=== PATIENT | female | born 1975 | race Caucasian/White ===

== ENCOUNTER → 2018-04-03 15:55 | Outpatient (CLI) | payer OTHER, SELFPAY ==
[2018-04-03 15:07] VITALS: TEMP 36.8
--- NOTE | 2018-04-03 16:02 | DI.RAD.S_ITS ---
PROCEDURE: XR ANKLE LT MIN 3V INDICATIONS: SPRAIN OF ANKLE TECHNIQUE: 3 views of the ankle were acquired. COMPARISON: None. FINDINGS: Bones: No fractures or dislocations. Ankle mortise is normally aligned. No suspicious bony lesions. Soft tissues: Lateral malleolar soft tissue edema is present. Achilles tendon appears normal. IMPRESSION: Lateral soft tissue edema. No visualized acute fracture or dislocation. However, if clinical concern and/or pain persist, short interval imaging followup in 7-10 days is recommended, as occult injury cannot be definitively excluded. Dictated by: Venus Burch M.D. on 04/03/2018 at 17:04 Approved by: Venus Burch M.D. on 04/03/2018 at 17:11
== END ==
PROVIDERS: PCP Internal Medicine; Visit Provider Physician Assistant
DX: S93.402A Sprain of unspecified ligament of left ankle, initial encounter (principal)
CPT/HCPCS: 73610

== ENCOUNTER → 2018-10-07 10:51 | Outpatient (CLI) | payer OTHER, SELFPAY ==
--- NOTE | 2018-10-07 | DI.MG.S_ITS ---
BILATERAL DIGITAL SCREENING MAMMOGRAM 3D/2D WITH CAD: 10/07/2018 CLINICAL: Family history of breast cancer. Routine screening. Comparison is made to exams dated: 08/17/2017 mammogram and 08/11/2016 mammogram - [facility]. The tissue of both breasts is heterogeneously dense. This may lower the sensitivity of mammography. Current study was also evaluated with a Computer Aided Detection (CAD) system. No significant masses, calcifications, or other findings are seen in either breast. There has been no significant interval change. IMPRESSION: NEGATIVE There is no mammographic evidence of malignancy. A 1 year screening mammogram is recommended. This exam was interpreted at Station ID: [id number]. NOTE: For mammograms, a report in lay terms will be sent to the patient. Approximately 15% of breast malignancies will not be visualized mammographically. In the management of a palpable breast mass, a negative mammogram must not discourage biopsy of a clinically suspicious lesion. Electronically Signed By: Timi swenson/jose:10/07/2018 17:34:44 letter sent: Normal Exam ACR BI-RADS Category 1: Negative 3341F
== END ==
PROVIDERS: PCP Internal Medicine; Visit Provider Internal Medicine
DX: Z12.31 Encounter for screening mammogram for malignant neoplasm of breast (principal); Z80.3 Family history of malignant neoplasm of breast
CPT/HCPCS: 77063; 77067

== ENCOUNTER → 2019-11-19 12:54 | Outpatient (CLI) | payer OTHER, SELFPAY ==
--- NOTE | 2019-11-19 | DI.MG.S_ITS ---
BILATERAL DIGITAL SCREENING MAMMOGRAM 3D/2D WITH CAD: 11/19/2019 CLINICAL: Routine screening. Family history of breast cancer. Comparison is made to exams dated: 10/07/2018 mammogram, 08/17/2017 mammogram, and 08/11/2016 mammogram - [facility]. The tissue of both breasts is heterogeneously dense. This may lower the sensitivity of mammography. Current study was also evaluated with a Computer Aided Detection (CAD) system. No significant masses, calcifications, or other findings are seen in either breast. There has been no significant interval change. IMPRESSION: NEGATIVE There is no mammographic evidence of malignancy. A 1 year screening mammogram is recommended. This exam was interpreted at Station ID: [id number]. NOTE: For mammograms, a report in lay terms will be sent to the patient. Approximately 15% of breast malignancies will not be visualized mammographically. In the management of a palpable breast mass, a negative mammogram must not discourage biopsy of a clinically suspicious lesion. Electronically Signed By: Timi swenson/jose:11/21/2019 10:53:26 letter sent: Normal Exam ACR BI-RADS Category 1: Negative 3341F
== END ==
PROVIDERS: PCP Internal Medicine; Visit Provider Internal Medicine
DX: Z12.31 Encounter for screening mammogram for malignant neoplasm of breast (principal); Z80.3 Family history of malignant neoplasm of breast
CPT/HCPCS: 77063; 77067

== ENCOUNTER 2021-03-09 10:58 | Emergency (ER) | payer OTHER, SELFPAY ==
[2021-03-09 11:20] VITALS: BP 140/70; PULSE 75; RESP 18; TEMP 36.8; O2SAT 100; BMI 43.9
--- NOTE | 2021-03-09 11:20 | ED_ITS ---
HPI - Abdominal Pain General Chief Complaint: Abdominal Pain Stated Complaint: ABD PAIN. HERE FROM [facility] x3 Time Seen by Provider: 03/09/21 11:04 Source: patient Mode of arrival: Ambulatory Limitations: no limitations History of Present Illness HPI narrative: 45-year-old female nonsmoker without significant medical history presents with a family friend and the chief complaint of a few days worsening left lower quadrant pain. She states her pain has been gradually worsening and is made worse by moving and improves with rest. She is nauseated but denies any vomiting. She has had no dysuria, frequency or urgency. She does state that occasionally the abdominal cramping will build until she has a loose stool and then she experiences improvement for some time MD complaint: abdominal pain Onset (ago): day(s) Pain Consistency: constant Location: LLQ Severity: moderate Quality: cramping and aching Radiation: none Relieving factors: bowel movement Exacerbating factors: movement Associated symptoms: nausea Related Data Home Medications Medication Instructions Recorded Confirmed triamcinolone acetonide 1 lea TOPICAL BID #0 03/03/18 04/03/18 Previous Rx's Medication Instructions Recorded clobetasol 0.05 % TOPICAL QDAY #15 gm 03/03/18 nystatin 0 unit TOPICAL TID #1 tube 03/03/18 prazosin 1 mg capsule 2 mg PO HS #180 cap 05/24/18 loratadine 10 mg tablet 10 mg PO QDAYP PRN #90 tab 05/31/18 meloxicam 15 mg tablet 15 mg PO QDAY #90 tab 06/01/18 montelukast 10 mg tablet 10 mg PO QDAY #90 tab 06/01/18 omeprazole 20 mg capsule,delayed 20 mg PO QDAY #90 cap 06/01/18 release venlafaxine 75 mg capsule,extended 75 mg PO QDAY #90 cap 06/01/18 release 24 hr ciprofloxacin HCl 500 mg PO BID #20 tab 03/09/21 hydrocodone-acetaminophen 1 tab PO Q4-6H PRN #10 tab 03/09/21 metronidazole [Flagyl] 500 mg PO Q8H #30 tab 03/09/21 ondansetron 4 mg PO TID-QID PRN #10 tab 03/09/21 Allergies Allergy/AdvReac Type Severity Reaction Status Date / Time Penicillins [PENICILLINS] Allergy Severe ANAPHYLAXIS Verified 04/10/21 11:23 Sulfa (Sulfonamide Allergy Intermediate HIVES Verified 03/09/21 11:23 Antibiotics) [SULFA (SULFONAMIDE ANTIBIOTICS)] Review of Systems Constitutional Constitutional: Denies chills, Denies fatigue, Denies fever(s), Denies frequent falls, Denies lethargy and Denies weakness Eyes Eyes: Denies change in vision, Denies eye discharge, Denies irritation and Denies loss of vision ENT Ears, Nose, Mouth, and Throat: Denies change in voice, Denies dizziness, Denies neck pain, Denies sore throat and Denies throat swelling Cardiovascular Cardiovascular: Denies chest pain, Denies irregular heart rhythm, Denies lightheadedness, Denies palpitations, Denies dyspnea, Denies dyspnea on exertion and Denies orthopnea Respiratory Respiratory: Denies cough, Denies dyspnea, Denies dyspnea on exertion and Denies wheezing Gastrointestinal Gastrointestinal: Denies abdominal pain, Denies change in bowel habits, Reports diarrhea, Reports nausea and Denies vomiting Musculoskeletal Musculoskeletal: Denies neck pain and Denies numbness Integumentary/Breasts Skin/Breast: Denies pruritus, Denies erythema, Denies rash and Denies wounds Neurologic Neurologic: Denies behavioral changes, Denies confusion, Denies dizziness, Denies frequent falls, Denies loss of vision, Denies numbness and Denies weakness Psychiatric Psychiatric: Denies anxiety, Denies behavioral changes, Denies confusion, Denies depression, Denies homicidal ideation and Denies suicidal ideation Endocrine Endocrine: Denies fatigue, Denies flushing and Denies palpitations Hematologic/Lymphatic Hematologic/Lymphatic: Denies easy bruising Allergic/Immunologic Allergic/Immunologic: Denies urticaria, Denies throat swelling and Denies wheezing Patient History Family History Father Age: 69 Heart disease Grandfather Age: 93 Skin cancer (melanoma) Grandmother Stroke Grandfather Cancer Grandmother Stroke Social History Smoking Status: Never smoker Smoking Status: Never smoker Exam Narrative Exam Narrative: GENERAL: [45] year old patient appears stated age. Well- nourished, well-developed patient, in mild distress. Obviously uncomfortable, laying on her side and rubbing her left lower abdomen HEAD: Atraumatic. Normocephalic. EYES: Pupils equal round and reactive. Extraocular motions intact. No scleral icterus. No injection or drainage. ENT: Nose without bleeding, purulent drainage. Throat without erythema, tonsillar hypertrophy or exudate. Airway patent. NECK: Trachea midline. Non tender CARDIOVASCULAR: Regular rate and rhythm without murmurs, gallops, or rubs. RESPIRATORY: Clear to auscultation. Breath sounds equal bilaterally. No wheezes, rales, or rhonchi. GASTROINTESTINAL: Abdomen soft, severe left lower quadrant tenderness, no rebound, nondistended. Bowel sounds present in all 4 quadrants EXTREMITIES: No edema or joint tenderness. BACK: Nontender without deformity or crepitance. No flank tenderness. NEURO: AOx3. SKIN: No rash or erythema of visible areas Initial Vital Signs Initial Vital Signs: Vital Signs Temperature 98.3 F 03/09/21 11:20 Pulse Rate 75 03/09/21 11:20 Respiratory Rate 18 03/09/21 11:20 Blood Pressure 140/70 03/09/21 11:20 Pulse Oximetry 100 03/09/21 11:20 Course Orders Ordered: ED Orders 03/09/21 11:58 Blood Culture Stat Discontinued Medications Sodium Chloride (Normal Saline 0.9%) 1,000 mls @ 1,000 mls/hr IV BOLUS ONE Stop: 03/09/21 12:19 Last Admin: 03/09/21 12:06 Dose: 1,000 mls/hr Documented by: PATRICIA Vital Signs Vital signs: Vital Signs - 8 hr 03/09/21 13:42 03/09/21 13:43 03/09/21 15:04 Pulse Rate 63 62 66 Respiratory Rate 15 Blood Pressure 110/59 L 110/72 Pulse Oximetry 99 99 99 MDM - Abdominal Pain Lab Data Result diagrams: 03/09/21 11:34 03/09/21 11:34 Labs: Lab Results 03/09/21 03/09/21 03/09/21 Range/Units 11:30 11:34 11:34 WBC 12.5 H (4.5-11.0) X10^3/uL RBC 4.01 (4.0-5.2) X10^6/uL Hgb 12.7 (12.0-16.0) g/dL Hct 37.1 (36-46) % MCV 92.5 (80-100) fL MCH 31.5 (26-34) PG MCHC 34.1 (30-36) % RDW 12.5 (11.6-14.8) % Plt Count 266 (150-400) X10^3/uL Neut % (Auto) 70.7 (50-75) % Lymph % (Auto) 17.7 L (25-40) % [place] % (Auto) 8.6 (3-14) % Eos % (Auto) 2.1 (2-4) % Baso % (Auto) 0.9 (0-2) % Neut # (Auto) 8900 H (7829-8418) /uL Lymph # (Auto) 2200 (3945-6072) /uL [place] # (Auto) 1100 H (0-900) /uL Eos # (Auto) 300 (0-450) /uL Baso # (Auto) 100 (0-100) /uL Sodium 134 L (137-145) mmol/L Potassium 4.2 (3.4-5.1) mmol/L Chloride 103 (98-107) mmol/L Carbon Dioxide 22 (22-32) mmol/L BUN 11 (7-17) mg/dL Creatinine 0.61 (0.52-1.04) mg/dL Estimated GFR > 60.0 (>60) mL/min BUN/Creatinine Ratio 18.0 (6-22) Glucose 134 H (70-100) mg/dL Lactate (0.7-2.1) mmol/L Calcium 9.7 (8.4-10.2) mg/dL Total Bilirubin 1.2 (0.2-1.3) mg/dL AST 33 (14-36) IU/L ALT 51 H (<35) IU/L Alkaline Phosphatase 68 (38-126) U/L Total Protein 7.4 (6.3-8.2) g/dL Albumin 4.4 (3.5-5.0) g/dL Globulin 3.0 (1.7-4.1) g/dL Albumin/Globulin Ratio 1.5 (1.0-2.8) Lipase 70 (23-300) U/L Urine Test Negative (Negative) 03/09/21 Range/Units 11:34 WBC (4.5-11.0) X10^3/uL RBC (4.0-5.2) X10^6/uL Hgb (12.0-16.0) g/dL Hct (36-46) % MCV (80-100) fL MCH (26-34) PG MCHC (30-36) % RDW (11.6-14.8) % Plt Count (150-400) X10^3/uL Neut % (Auto) (50-75) % Lymph % (Auto) (25-40) % [place] % (Auto) (3-14) % Eos % (Auto) (2-4) % Baso % (Auto) (0-2) % Neut # (Auto) (7885-3642) /uL Lymph # (Auto) (8503-7339) /uL [place] # (Auto) (0-900) /uL Eos # (Auto) (0-450) /uL Baso # (Auto) (0-100) /uL Sodium (137-145) mmol/L Potassium (3.4-5.1) mmol/L Chloride (98-107) mmol/L Carbon Dioxide (22-32) mmol/L BUN (7-17) mg/dL Creatinine (0.52-1.04) mg/dL Estimated GFR (>60) mL/min BUN/Creatinine Ratio (6-22) Glucose (70-100) mg/dL Lactate 1.5 (0.7-2.1) mmol/L Calcium (8.4-10.2) mg/dL Total Bilirubin (0.2-1.3) mg/dL AST (14-36) IU/L ALT (<35) IU/L Alkaline Phosphatase (38-126) U/L Total Protein (6.3-8.2) g/dL Albumin (3.5-5.0) g/dL Globulin (1.7-4.1) g/dL Albumin/Globulin Ratio (1.0-2.8) Lipase (23-300) U/L Urine Test (Negative) Point of care testing: Urine Dip Bedside Urine Glucose Negative Bedside Urine Bilirubin - Negative Bedside Urine Ketone - Negative Urine Specific [place] 1.015 Bedside Urine Occult Blood - Negative Bedside Urine pH 6 Bedside Urine Protein - Negative Bedside Urine Urobilinogen - Negative Bedside Urine Nitrite - Negative Bedside Urine Leukocytes - Negative Esterase Imaging Data CT scan - abdomen/pelvis: Radiologist's Impression: Yokasta Mansikka,Jennifer L 45 F [address] [id number] Scan ReportSigned Patient: Jennifer Thomas LMR#: [id number]: [id number]:[id number]/Sex: 45 / FDate of Service: 03/09/21Loc: EDAccession Number: [id number] Procedure: CT abdomen pelvis w con Ordering Provider: Samm Burns D.O. PROCEDURE: CT ABDOMEN PELVIS W CON INDICATIONS: severe LLQ pain, fever, shaking, chills TECHNIQUE: After the administration of intravenous contrast, 5 mm thick sections acquired from the diaphragm to the symphysis. 5 mm coronal and sagittal reformats were acquired. For radiation dose reduction, the following was used: automated exposure control, adjustment of mA and/or kV according to patient size. COMPARISON: None. FINDINGS: Image quality: Excellent. ABDOMEN: Lung bases: Lung bases are clear. Heart size is normal. Solid organs: Diffuse hepatic steatosis with focal sparing in the posterior left hepatic lobe adjacent to the fissure for the ligamentum teres. No focal hepatic mass identified. No intrahepatic biliary ductal dilatation. The gallbladder is unremarkable. Normal caliber common duct. Pancreas is unremarkable. The spleen is normal in size and otherwise normal. No adrenal gland mass. Both kidneys are normal. No shadowing calculus or hydronephrosis. Peritoneum and bowel: No abnormally dilated loop of bowel. Inflammatory changes surrounding the proximal sigmoid colon (series 2, images 65-74). Small volume adjacent free fluid extending into the pelvis. Nodes and vessels: No threshold enlarged intra-abdominal or retroperitoneal lymph node. Miscellaneous: No ventral hernias. PELVIS: Genitourinary: Decompressed urinary bladder. Uterus and ovaries are within normal limits. Miscellaneous: No threshold enlarged pelvic or inguinal lymph node. Bones: No acute or suspicious osseous lesion. IMPRESSION: Inflammatory changes adjacent to the proximal sigmoid colon with an associated diverticulum. Findings are consistent with diverticulitis. No adjacent fluid collection or perforation. Dictated by: Zac Bueno M.D. on 03/09/2021 at 13:15 Approved by: Zac Bueno M.D. on 03/09/2021 at 13:18 [facility] Narrative Medical decision making narrative: Patient with story and physical exam very convincing for mild diverticulitis. Slight elevation in white blood cells and otherwise unremarkable labs. CT shows diverticulitis without abscess or perforation. She is tolerating orals, pain is controlled and she so has no signs of sepsis. Return precautions given and questions answered to her apparent satisfaction Discharge Plan Departure Patient Disposition: Home Clinical Impression: Diverticulitis Instructions: DI for Diverticulitis Activity Restrictions/Additional Instructions: *You have been diagnosed with [diverticulitis without evidence of abscess or bowel perforation.] *What to do: *Take medications as directed *Follow up with your primary care provider in 2-3 days, call for an appointment. Let them know you were seen in the Emergency Department and that we ask that you be seen in follow up * please consider a clear liquid diet for the next 24-48 hours and advance as tolerated *Return to ER if you should have any new, worsening or concerning symptoms, such as [fever, shaking chills, worsening pain or other bothersome symptoms] Prescriptions: New ciprofloxacin HCl 500 mg tablet 500 mg PO BID Qty: 20 RF: 0 metronidazole [Flagyl] 500 mg tablet 500 mg PO Q8H Qty: 30 RF: 0 ondansetron 4 mg tablet,disintegrating 4 mg PO TID-QID PRN (Reason: nausea and vomiting) Qty: 10 RF: 0 hydrocodone-acetaminophen 5-325 mg tablet 1 tab PO Q4-6H PRN (Reason: pain) Qty: 10 RF: 0 No Action triamcinolone acetonide 0.1 % cream 1 lea Topical BID Qty: 0 RF: 0 nystatin 30 GM cream 0 unit Topical TID Qty: 1 RF: 2 clobetasol 0.05 % ointment 0.05 % Topical QDAY Qty: 15 RF: 1 prazosin 1 mg capsule 2 mg PO HS Qty: 180 RF: 3 loratadine 10 mg tablet 10 mg PO QDAYP PRN (Reason: allergy symptoms) Qty: 90 RF: 3 montelukast [Singulair] 10 mg tablet 10 mg PO QDAY Qty: 90 RF: 3 omeprazole 20 mg capsule,delayed release(DR/EC) 20 mg PO QDAY Qty: 90 RF: 3 meloxicam 15 mg tablet 15 mg PO QDAY Qty: 90 RF: 1 venlafaxine [Effexor XR] 75 mg capsule,extended release 24hr 75 mg PO QDAY Qty: 90 RF: 1 Referrals: Kacie Berry ARNP [Primary Care Provider] -
[2021-03-09 11:42] LABS: Add Manual Diff / Slide Review NO; Basophils Absolute Auto 100 /uL (0-100); Basophils Percent Auto 0.9 % (0-2); Eosinophils Absolute Auto 300 /uL (0-450); Eosinophils Percent Auto 2.1 % (2-4); Hematocrit 37.1 % (36-46); Hemoglobin 12.7 g/dL (12.0-16.0); Lymphocytes Absolute Auto 2200 /uL (1100-4500); Lymphocytes Percent Auto 17.7 % (25-40); Mean Corpuscular HGB Conc 34.1 % (30-36); Mean Corpuscular Hemoglobin 31.5 PG (26-34); Mean Corpuscular Volume 92.5 fL (80-100); Monocytes Absolute Auto 1100 /uL (0-900); Monocytes Percent Auto 8.6 % (3-14); Neutrophils Absolute Auto 8900 /uL (1500-7000); Neutrophils Percent Auto 70.7 % (50-75); Platelet Count 266 X10^3/uL (150-400); Red Blood Cell Count 4.01 X10^6/uL (4.0-5.2); Red Cell Distribution Width 12.5 % (11.6-14.8); White Blood Cell Count 12.5 X10^3/uL (4.5-11.0)
[2021-03-09 11:58] LABS: Lactate (Lactic Acid) 1.5 mmol/L (0.7-2.1)
[2021-03-09 11:59] LABS: Alanine Aminotransferase 51 IU/L (<35); Albumin 4.4 g/dL (3.5-5.0); Albumin Globulin Ratio 1.5 (1.0-2.8); Alkaline Phosphatase 68 U/L (38-126); Aspartate Aminotransferase 33 IU/L (14-36); Bilirubin Total 1.2 mg/dL (0.2-1.3); Blood Urea Nitrogen 11 mg/dL (7-17); Calcium 9.7 mg/dL (8.4-10.2); Carbon Dioxide 22 mmol/L (22-32); Chloride 103 mmol/L (98-107); Estimated Glomerular Filt Rate > 60.0 mL/min (>60); Glucose 134 mg/dL (70-100); HEMOLYSIS < 15 (0-50); Lipase 70 U/L (23-300); Potassium 4.2 mmol/L (3.4-5.1); Sodium 134 mmol/L (137-145); Total Protein 7.4 g/dL (6.3-8.2)
[2021-03-09] MEDS: SODIUM CHLORIDE 0.9% 1,000 ML 1000 ML IV (12:06)
[2021-03-09 12:20] LABS: Pregnancy Test Urine Negative (Negative)
[2021-03-09 13:42] VITALS: PULSE 63; O2SAT 99
[2021-03-09 13:43] VITALS: BP 110/59; PULSE 62; O2SAT 99
[2021-03-09 15:04] VITALS: BP 110/72; PULSE 66; RESP 15; O2SAT 99
--- NOTE | 2021-03-11 07:27 | PC.NURSE ---
Late entry. one liter normal saline infused, stopped at 1330.
== END 2021-03-09 15:05 | disposition home or self-care (01) ==
PROVIDERS: Emergency Provider Emergency Medicine; PCP Internal Medicine
DX: K57.92 Diverticulitis of intestine, part unspecified, without perforation or abscess without bleeding (principal); R11.0 Nausea
CPT/HCPCS: 36415; 74177; 80053; 81003; 81025; 83605; 83690; 85025; 87040; 96360; 99284; Q9967

== ENCOUNTER 2021-04-03 20:32 | Observation (INO) | payer OTHER, SELFPAY ==
[2021-04-03] VITALS (11 sets, daily range): BP systolic 106–147; BP diastolic 58–80; PULSE 63–71; RESP 11–21; TEMP 36.7; O2SAT 96–99; BMI 43.9
--- NOTE | 2021-04-03 20:40 | DI.RAD.S_ITS ---
PROCEDURE: XR CHEST 1V INDICATIONS: chest pain TECHNIQUE: One view of the chest was acquired. COMPARISON: [facility], , CHEST 2 VIEW, 06/16/2017, 14:12. FINDINGS: Surgical changes and devices: None. Lungs and pleura: Lungs are clear. No pleural effusions or pneumothorax. Mediastinum: Mediastinal contours appear normal. Heart size is normal. Bones and chest wall: No suspicious bony lesions. Overlying soft tissues appear unremarkable. IMPRESSION: No acute disease. Dictated by: Peewee Lind M.D. on 04/03/2021 at 21:12 Approved by: Peewee Lind M.D. on 04/03/2021 at 21:12
[2021-04-03 20:57] LABS: Add Manual Diff / Slide Review NO; Basophils Absolute Auto 100 /uL (0-100); Basophils Percent Auto 1.2 % (0-2); Eosinophils Absolute Auto 300 /uL (0-450); Eosinophils Percent Auto 3.3 % (2-4); Hematocrit 37.9 % (36-46); Lymphocytes Absolute Auto 2400 /uL (1100-4500); Lymphocytes Percent Auto 27.1 % (25-40); Mean Corpuscular HGB Conc 34.3 % (30-36); Mean Corpuscular Hemoglobin 31.5 PG (26-34); Mean Corpuscular Volume 91.9 fL (80-100); Monocytes Absolute Auto 600 /uL (0-900); Monocytes Percent Auto 6.7 % (3-14); Neutrophils Absolute Auto 5500 /uL (1500-7000); Neutrophils Percent Auto 61.7 % (50-75); Platelet Count 298 X10^3/uL (150-400); Red Blood Cell Count 4.12 X10^6/uL (4.0-5.2); Red Cell Distribution Width 12.4 % (11.6-14.8); White Blood Cell Count 8.9 X10^3/uL (4.5-11.0)
[2021-04-03 21:05] LABS: Prothrombin Time 10.8 SECONDS (10.1-12.7)
[2021-04-03 21:08] LABS: PTT Partial Thromboplastin Tim 35 SECONDS (26.4-36.2)
[2021-04-03 21:10] LABS: Alanine Aminotransferase 64 IU/L (<35); Albumin 4.9 g/dL (3.5-5.0); Albumin Globulin Ratio 1.6 (1.0-2.8); Alkaline Phosphatase 84 U/L (38-126); Aspartate Aminotransferase 49 IU/L (14-36); BUN Creatinine Ratio 17.6 (6-22); Bilirubin Total 0.5 mg/dL (0.2-1.3); Blood Urea Nitrogen 13 mg/dL (7-17); Calcium 9.8 mg/dL (8.4-10.2); Carbon Dioxide 23 mmol/L (22-32); Chloride 103 mmol/L (98-107); Creatine Kinase 62 U/L (30-135); Estimated Glomerular Filt Rate > 60.0 mL/min (>60); Globulin 3.1 g/dL (1.7-4.1); Glucose 121 mg/dL (70-100); HEMOLYSIS < 15 (0-50); Lipase 120 U/L (23-300); Potassium 4.2 mmol/L (3.4-5.1); Sodium 139 mmol/L (137-145)
[2021-04-03 21:21] LABS: Troponin I < 0.012 ng/mL (0.01-0.034)
--- NOTE | 2021-04-03 21:46 | ED_ITS ---
HPI - Chest Pain General Chief Complaint: Chest Pain Stated Complaint: chest pain, up left arm and neck Time Seen by Provider: 04/03/21 21:38 Source: patient Mode of arrival: Ambulatory History of Present Illness HPI narrative: Patient here non reproducible left-sided chest pain rate to left neck and left arm. Pressure. Moderate. Onset 6:00 p.m. tonight. Consistent and persistent. No nausea dyspnea sweating. Father history of early coronary disease with bypass. Patient never had stress test. LMP now. No history of blood clots in legs or lungs. Is on blood pressure medication for headaches. No recent illness otherwise. Does not smoke. Related Data Previous Rx's Medication Instructions Recorded prazosin 1 mg capsule 2 mg PO HS #180 cap 05/24/18 loratadine 10 mg tablet 10 mg PO QDAYP PRN #90 tab 05/31/18 meloxicam 15 mg tablet 15 mg PO QDAY #90 tab 06/01/18 montelukast 10 mg tablet 10 mg PO QDAY #90 tab 06/01/18 omeprazole 20 mg capsule,delayed 20 mg PO QDAY #90 cap 06/01/18 release venlafaxine 75 mg capsule,extended 75 mg PO QDAY #90 cap 06/01/18 release 24 hr Allergies Allergy/AdvReac Type Severity Reaction Status Date / Time Penicillins [PENICILLINS] Allergy Severe ANAPHYLAXIS Verified 04/03/21 20:40 Sulfa (Sulfonamide Allergy Intermediate HIVES Verified 04/03/21 20:40 Antibiotics) [SULFA (SULFONAMIDE ANTIBIOTICS)] Review of Systems Review of Systems Narrative: GENERAL: Denies chills, fatigue, malaise, fever, sweats. HEENT: Denies sinus pain, ear pain, sore throat RESPIRATORY: Denies dyspnea, cough CARDIOVASCULAR: Complains chest pain, denies palpitations GASTROINTESTINAL: Denies nausea, vomiting, abdominal pain : Denies dysuria, frequency, hematuria MUSCULOSKELETAL: denies muscle or bony pain SKIN: Denies rash, skin lesions NEUROLOGIC: Denies weakness, numbness ROS Unobtainable: All systems reviewed & are unremarkable except as noted in HPI and below Patient History Family History Father Age: 69 Heart disease Grandfather Age: 93 Skin cancer (melanoma) Grandmother Stroke Grandfather Cancer Grandmother Stroke Social History household members: spouse Smoking Status: Never smoker Smoking Status: Never smoker alcohol intake frequency: 0-2 drinks per day Substance Use Type: does not use Exam Narrative Exam Narrative: GENERAL: in no distress, not toxic not dyspneic HEAD: Normocephalic. EYES: Pupils equal round No scleral icterus. No injection no discharge ENT: Mucous membranes moist. NECK: Trachea midline. CARDIOVASCULAR: Regular rate and rhythm without murmurs RESPIRATORY: Clear to auscultation. Breath sounds equal bilaterally. No wheezes, rales, or rhonchi. GASTROINTESTINAL: Abdomen soft, non-tender EXTREMITIES: No gross deformities. BACK: No flank tenderness. NEURO: AOx4. SKIN: Warm and dry PSYCH: Not anxious, is cooperative Initial Vital Signs Initial Vital Signs: Vital Signs Temperature 98.0 F 04/03/21 20:37 Pulse Rate 71 04/03/21 20:37 Respiratory Rate 16 04/03/21 20:37 Blood Pressure 147/80 H 04/03/21 20:37 Pulse Oximetry 97 04/03/21 20:37 Course Course Course Narrative: Patient feeling much better after nitro paste Decision to Admit Date: 04/03/21 Decision to Admit time: 22:32 Orders Ordered: ED Orders 04/03/21 20:40 XR chest 1V Stat EKG-12 Lead Stat 04/03/21 20:49 Complete Blood Count AUTO DIFF Stat Comprehensive Metabolic Panel Stat D Dimer Stat Lipase Stat Partial Thromboplastin Time Stat Test Serum,Qual Stat Prothrombin Time INR Stat Troponin & CK Cardiac Panel Stat 04/03/21 22:02 COVID19 - ADMIT (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 swab/PCR) Stat 04/03/21 22:36 EC echo doppler complete Stat Acetaminophen (Acetaminophen 325 Mg Tablet) 650 mg PO Q6HR PRN PRN Reason: Fever/Mild Pain (1-3) Sodium Chloride (Normal Saline 0.9%) 1,000 mls @ 125 mls/hr IV CONT YUMIKO Last Infusion: 04/04/21 00:25 Dose: 125 mls/hr Documented by: Admin: 04/03/21 22:47 Dose: 125 mls/hr Documented by: CHANCE Ondansetron HCl (Ondansetron 4 Mg/2 Ml Inj) 4 mg IV Q4HR PRN PRN Reason: Nausea And Vomiting Discontinued Medications Aspirin (Aspirin 81 Mg Chew Tab) 324 mg PO NOW ONE Stop: 04/03/21 21:44 Last Admin: 04/03/21 21:53 Dose: 324 mg Documented by: CHANCE Nitroglycerin (Nitroglycerin Oint 1 Inch/Gm Oint...G.) 0.5 inch TOP NOW ONE Stop: 04/03/21 21:44 Last Admin: 04/03/21 21:53 Dose: 0.5 inch Documented by: CHANCE Reevaluation(s) Reevaluation #1: Patient states chest discomfort much better after nitro paste. Aspirin given as well. Agrees for admission for stress test. Time: 22:32 Consultations Consultation #1: Spoke with family care provider on-call, Dr. Rogers. Will admit. Patient will have be boarded here. Time: 22:36 Vital Signs Vital signs: Vital Signs - 8 hr 04/03/21 20:37 04/03/21 21:11 04/03/21 21:16 Temperature 98.0 F Pulse Rate 71 66 67 Respiratory Rate 16 13 18 Blood Pressure 147/80 H 125/66 Pulse Oximetry 97 96 98 04/03/21 21:30 04/03/21 21:53 04/03/21 21:58 Temperature Pulse Rate 69 63 69 Respiratory Rate 13 21 Blood Pressure 125/66 125/73 Pulse Oximetry 98 99 04/03/21 22:00 04/03/21 22:30 04/03/21 23:00 Temperature Pulse Rate 64 64 65 Respiratory Rate 14 16 16 Blood Pressure 121/70 125/73 Pulse Oximetry 99 97 96 04/03/21 23:01 Temperature Pulse Rate 65 Respiratory Rate 18 Blood Pressure 106/58 L Pulse Oximetry 96 MDM - Chest Pain Differential Diagnosis Differential diagnosis: Likely stable angina, unstable angina pectoris, atypical chest pain and st elevation myocardial infarction Lab Data Attestation: I reviewed the patient's lab results. Result diagrams: 04/03/21 20:49 04/03/21 20:49 Labs: Lab Results 04/03/21 04/03/21 04/03/21 Range/Units 20:49 20:49 20:49 WBC 8.9 (4.5-11.0) X10^3/uL RBC 4.12 (4.0-5.2) X10^6/uL Hgb 13.0 (12.0-16.0) g/dL Hct 37.9 (36-46) % MCV 91.9 (80-100) fL MCH 31.5 (26-34) PG MCHC 34.3 (30-36) % RDW 12.4 (11.6-14.8) % Plt Count 298 (150-400) X10^3/uL Neut % (Auto) 61.7 (50-75) % Lymph % (Auto) 27.1 (25-40) % [place] % (Auto) 6.7 (3-14) % Eos % (Auto) 3.3 (2-4) % Baso % (Auto) 1.2 (0-2) % Neut # (Auto) 5500 (4304-8533) /uL Lymph # (Auto) 2400 (9326-2951) /uL [place] # (Auto) 600 (0-900) /uL Eos # (Auto) 300 (0-450) /uL Baso # (Auto) 100 (0-100) /uL PT 10.8 (10.1-12.7) SECONDS INR 1.0 (0.9-1.3) APTT 35 (26.4-36.2) SECONDS D-Dimer (<230) ng/mL Sodium 139 (137-145) mmol/L Potassium 4.2 (3.4-5.1) mmol/L Chloride 103 (98-107) mmol/L Carbon Dioxide 23 (22-32) mmol/L BUN 13 (7-17) mg/dL Creatinine 0.74 (0.52-1.04) mg/dL Estimated GFR > 60.0 (>60) mL/min BUN/Creatinine Ratio 17.6 (6-22) Glucose 121 H (70-100) mg/dL Calcium 9.8 (8.4-10.2) mg/dL Total Bilirubin 0.5 (0.2-1.3) mg/dL AST 49 H (14-36) IU/L ALT 64 H (<35) IU/L Alkaline Phosphatase 84 (38-126) U/L Total Creatine Kinase 62 (30-135) U/L CK-MB (CK-2) TNP CK-MB (CK-2) Rel Index TNP Troponin I < 0.012 (0.01-0.034) ng/mL Total Protein 8.0 (6.3-8.2) g/dL Albumin 4.9 (3.5-5.0) g/dL Globulin 3.1 (1.7-4.1) g/dL Albumin/Globulin Ratio 1.6 (1.0-2.8) Lipase 120 (23-300) U/L Serum , Qual (Negative) SARS-CoV-2 (PCR) (Negative) 04/03/21 04/03/21 04/03/21 Range/Units 20:49 20:49 22:02 WBC (4.5-11.0) X10^3/uL RBC (4.0-5.2) X10^6/uL Hgb (12.0-16.0) g/dL Hct (36-46) % MCV (80-100) fL MCH (26-34) PG MCHC (30-36) % RDW (11.6-14.8) % Plt Count (150-400) X10^3/uL Neut % (Auto) (50-75) % Lymph % (Auto) (25-40) % [place] % (Auto) (3-14) % Eos % (Auto) (2-4) % Baso % (Auto) (0-2) % Neut # (Auto) (2568-7472) /uL Lymph # (Auto) (4307-0748) /uL [place] # (Auto) (0-900) /uL Eos # (Auto) (0-450) /uL Baso # (Auto) (0-100) /uL PT (10.1-12.7) SECONDS INR (0.9-1.3) APTT (26.4-36.2) SECONDS D-Dimer < 200 (<230) ng/mL Sodium (137-145) mmol/L Potassium (3.4-5.1) mmol/L Chloride (98-107) mmol/L Carbon Dioxide (22-32) mmol/L BUN (7-17) mg/dL Creatinine (0.52-1.04) mg/dL Estimated GFR (>60) mL/min BUN/Creatinine Ratio (6-22) Glucose (70-100) mg/dL Calcium (8.4-10.2) mg/dL Total Bilirubin (0.2-1.3) mg/dL AST (14-36) IU/L ALT (<35) IU/L Alkaline Phosphatase (38-126) U/L Total Creatine Kinase (30-135) U/L CK-MB (CK-2) CK-MB (CK-2) Rel Index Troponin I (0.01-0.034) ng/mL Total Protein (6.3-8.2) g/dL Albumin (3.5-5.0) g/dL Globulin (1.7-4.1) g/dL Albumin/Globulin Ratio (1.0-2.8) Lipase (23-300) U/L Serum , Qual Negative (Negative) SARS-CoV-2 (PCR) Negative (Negative) Imaging Data Chest x-ray: Radiologist's Impression: [address] [id number] ReportSigned Patient: Jennifer Thomas LMR#: [id number]: 1975Acct:[id number]/Sex: 45 / FDate of Service: 04/03/21Loc: EDAccession Number: [id number] Procedure: XR chest 1V Ordering Provider: Jez Field MD PROCEDURE: XR CHEST 1V INDICATIONS: chest pain TECHNIQUE: One view of the chest was acquired. COMPARISON: [facility], CHEST 2 VIEW, 06/16/2017, 14:12. FINDINGS: Surgical changes and devices: None. Lungs and pleura: Lungs are clear. No pleural effusions or pneumothorax. Mediastinum: Mediastinal contours appear normal. Heart size is normal. Bones and chest wall: No suspicious bony lesions. Overlying soft tissues appear unremarkable. IMPRESSION: No acute disease. Dictated by: Peewee Lind M.D. on 04/03/2021 at 21:12 Approved by: Peewee Lind M.D. on 04/03/2021 at 21:12 ECG Data Attestation: I personally reviewed and interpreted this ECG as follows: Interpretation: Normal sinus rhythm no ST elevation or depression, rate 67 MDM Narrative Medical decision making narrative: Appropriate for admission for stress test. Symptoms warrant for observation overnight and stress test in the morning. Discharge Plan Departure Patient Disposition: Admitted as Observation Clinical Impression: Chest pain Qualifiers: Chest pain type: unspecified Qualified Code(s): R07.9 - Chest pain, unspecified Admit Date/Time: 04/03/21 23:25 Admit Provider: Kacie Berry
[2021-04-03] MEDS: ASPIRIN 81 MG CHEW TAB 324 MG PO (21:53)
[2021-04-03] MEDS: NITROGLYCERIN OINT 1 INCH/GM OINT...G. 0.5 INCH TOP (21:53)
--- NOTE | 2021-04-03 22:36 | DI.ECHO.S_ITS ---
[facility] +---------+ : : [address] [place] : : : : [id number] : : : : Phone: [phone] Echocardiogram Report + + :Name: REINALDO COLE Study Date: 04/04/2021 Height: 63 in : :[facility] ReadingLocation: Weight: 248 lb : : Gender: Female BSA: 2.1 m2 : :: 1975 Age: 45 yrs BP: 118/65 mmHg: :Reason For Study: CHEST PAIN : :Ordering Physician: JEMAL, : :JESSICA Performed By: Kenyetta Quesada : :Referring: JESSICA JOAQUIN : + + Interpretation Summary Normal sinus rhythm. Normal LV size, wall thickness, wall motion and left ventricular systolic function. Ejection fraction is 60-65%. No diastolic dysfunction. No significant valvular abnormalities. Normal chamber sizes. No prior study available for comparison. Procedure: A two-dimensional transthoracic echocardiogram with color flow and Doppler was performed. The study quality was technically adequate. There is no prior echocardiogram noted for this patient. The patient was in sinus rhythm with heart rates between 60-72 bpm during the exam. Left Ventricle: The left ventricle is normal in size and wall thickness. The ejection fraction is estimated to be 60-65%. Right Ventricle: The right ventricle is grossly normal size. The right ventricular systolic function is normal. Atria: Both atria are normal in size. There is no Doppler evidence for an interatrial shunt. Mitral Valve: The mitral valve is normal in structure and function. There is trace mitral regurgitation. Aortic Valve: The aortic valve opens well. There is no aortic valve stenosis. No aortic regurgitation is present. Tricuspid Valve: The tricuspid valve is normal in structure and function. There is a trace or physiologic amount of tricuspid regurgitation. Pulmonary artery pressures cannot be estimated because of the lack of a measurable TR jet velocity. Pulmonic Valve: The pulmonic valve leaflets are thin and pliable; valve motion is normal. There is no pulmonic valvular regurgitation. Great Vessels: The aortic root is normal size. The dimensions of the ascending aorta are normal. The inferior vena cava was not well visualized. Pericardium/ Pleura There is no pericardial effusion. There is no pleural effusion. MMode/2D Measurements & Calculations LVIDd: 4.5 cm LVOT diam: 2.1 cm LVIDs: 3.0 cm Ao root diam: 2.9 cm FS: 32.3 % asc Aorta Diam: 2.8 cm EPSS: 1.1 cm Ao Arch Diam (Prox Trans): 2.6 cm IVSd: 0.95 cm LVPWd: 1.0 cm LV christy. diameter/BSA (cm/m^2): 2.1 LV sys. diameter/BSA (cm/m^2): 1.4 LA A2 area: 21.0 cm2 RA long axis: 5.1 cm LA A4 area: 16.1 cm2 RA area: 11.9 cm2 LA length (vol): 5.4 cm RA vol: 23.4 ml LA vol: 53.4 ml RA : 11.0 ml/m2 LA vol index: 25.2 ml/m2 TAPSE: 1.7 cm Doppler Measurements & Calculations Ao V2 max: 143.2 cm/sec LVOT Max Emmanuel: 95.7 cm/sec Ao V2 mean: 94.5 cm/sec LV V1 max P.7 mmHg Ao max P.2 mmHg LV V1 VTI: 19.9 cm Ao mean P.1 mmHg CHARLIE(I,D): 2.4 cm2 Ao V2 VTI: 29.5 cm CHARLIE(V,D): 2.4 cm2 sev ratio: 0.67 CHARLIE indexed to BSA (cm^2/m^2): 1.1 MV E max emmanuel: 91.6 cm/sec PA pr(Accel): 24.2 mmHg MV A max emmanuel: 85.4 cm/sec MV E/A: 1.1 Med Peak E' Emmanuel: 8.8 cm/sec E/E' med: 10.4 Lat Peak E' Emmanuel: 12.3 cm/sec E/E' lat: 7.4 E/e' average: 8.9 MV dec time: 0.23 sec SV(LVOT): 70.9 ml Electronically signed by: Emily Alcaraz M.D. on Reading Physician:04/04/2021 02:01 PM
[2021-04-03] MEDS: SODIUM CHLORIDE 0.9% 1,000 ML 125 ML IV (22:47)
--- NOTE | 2021-04-03 22:54 | PC.NURSE ---
Pt updated on boarding status, IV fluids running as ordered. Pt reports chest pain down to 3/10.
[2021-04-03 22:56] LABS: Pregnancy Test Serum,Qual Negative (Negative)
[2021-04-03 23:08] LABS: COVID19 - ADMIT (NP swab/PCR) Negative (Negative)
[2021-04-03 23:40] LABS: D Dimer < 200 ng/mL (<230)
[2021-04-04] VITALS (7 sets, daily range): BP systolic 118–134; BP diastolic 65–81; PULSE 56–72; RESP 11–18; TEMP 36.1–36.8; O2SAT 96–100; BMI 43.9
[2021-04-04] MEDS: ONDANSETRON 4 MG/2 ML INJ IV ×2 (02:57→08:02)
[2021-04-04] MEDS: ACETAMINOPHEN 325 MG TABLET 650 MG PO (04:33)
[2021-04-04] MEDS: SODIUM CHLORIDE 0.9% 1,000 ML 125 ML IV (07:59)
--- NOTE | 2021-04-04 08:22 | DI.NM.S_ITS ---
PROCEDURE: NM NEFTALI PERF SPECT SINGLE STUDY Exercise myocardial perfusion SPECT with gated imaging and ejection fraction RADIOPHARMACEUTICAL: 24.1 mCi Tc-99m sestamibi IV at peak exercise. INDICATIONS: chest pain TECHNIQUE: Radiopharmaceutical was injected at peak stress test. SPECT images were obtained, with perfusion images in short axis, horizontal long axis, and vertical long axis views. Gated images were reviewed using [employer] software. COMPARISON: None. CARDIAC STRESS: A standard Davion treadmill exercise tolerance test was performed by the patient under the supervision of an attending staff. The patient exercised for 8 minutes and 7 seconds; functional aerobic impairment (YUKO) is +5%. Hemodynamic data: There is normal blood pressure and heart response to exercise. Patient achieved 92% of maximum predicted heart rate. Symptoms: Patient denied anginal chest pain during exercise. EKG: No diagnostic changes of ischemia; rare PVCs. FINDINGS: Raw data: There is good labeling of myocardium by radiotracer. No significant motion artifacts. Cvbm-kk-reefi ratio is 0.36 (normal is less than 0.38 for sestamibi tracer, and less than 0.50 for thallium tracer). Left ventricular function: Gated images demonstrate normal left ventricle wall thickening. No segmental wall motion abnormalities. Left ventricle end diastolic volume is 105 mL. Left ventricle stress ejection fraction is 75%; normal values are above 45%. Myocardial perfusion: There is normal distribution of activity in the left and right ventricular myocardium, without focal perfusion defects. IMPRESSION: Low risk, normal treadmill stress test. 1) No perfusion evidence of ischemia or infarction. 2) Normal left ventricular size, wall motion, and systolic function (EF post stress 75%). 3) No ECG evidence of ischemia. 4) No angina during the study. 5) Slightly reduced exercise tolerance (10.1 METs, YUKO +5%). Target heart rate achieved. Appropriate BP response to exercise. 6) No prior nuclear stress test available for comparison. Dictated by: Alexis Garcia MD on 04/05/2021 at 9:22 Approved by: Alexis Garcia MD on 04/05/2021 at 9:26
--- NOTE | 2021-04-04 08:29 | P.HP_ITS ---
History of Present Illness History of Present Illness Date Patient Seen: 04/04/21 Time Patient Seen: 08:29 Date of Onset of Symptoms: 04/03/21 Chief complaint: chest pain, up left arm and neck Narrative: This is a very pleasant 45-year-old female who is followed by KYE Baca, for anxiety, PTSD, migraine headaches, hyperlipidemia, GERD who presents to emergency department with complaints of sudden onset of left anterior chest pain. Patient was in her usual state health last night when she was enjoying the nice dinner with her daughter and family. They were having hamburgers salad and she did have a glass a wine and then she developed left anterior chest pain that radiated to her left shoulder. She had associated nausea but no shortness of breath diaphoresis. She did become dizzy as well. She called the nursing line and they recommended she be evaluated in the ER. She was evaluated in the ER and was found to have normal CK and troponin and an EKG however they did put nitro paste on and that resolved her pain. She has had no further chest pain since last night. She is having a headache this morning. She has a history of migraine headaches and this is not a severe migraine. She typically takes [id number] Excedrin for her headaches and if it is severe she takes Imitrex. She is on propanolol regularly for migraine prophylaxis. Of note she was recently evaluated and treated for diverticulitis in mid February and was treated with Flagyl and Cipro and her symptoms have completely resolved. Past medical history: 1. Migraine headaches 2. Mixed hyperlipidemia 3. GERD 4. Seasonal allergies 5. Diverticulitis 6. Depression anxiety 7. PTSD 8. Normal spontaneous vaginal deliveries x2 9. History of BRCA positive in mom but patient was tested and is negative 10. Morbid obesity Current medications: Per panel a, Singulair, prazosin 2 mg at bedtime, Claritin 10 mg daily, venlafaxine ER 75 mg daily, meloxicam 15 mg daily but she takes every other day, omeprazole 20 mg daily Allergies: Penicillin and sulfa Past surgical history 1. Two thousand twelve arthroscopy of her right knee she has had several of these 2. 2011 for rotator cuff repair Family history: Patient's father at 53 due to sudden cardiac arrest. He had had a history of a heart valve replacement in 2014 Mom is alive and has a history of cervical cancer also is BRCA positive Older brother was recently diagnosed with type 2 diabetes. 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 She denies any decreased exercise tolerance. She denies any chest pain with exertion. She denies any dyspnea on exertion. Patient denies any change in her bowels. She denies any change in her bladder function. She denies any rashes or fevers or coughs or chills Patient denies any GERD Patient History Family & Social History Family History Father Age: 69 Heart disease Grandfather Age: 93 Skin cancer (melanoma) Grandmother Stroke Grandfather Cancer Grandmother Stroke Social History: household members spouse Prior Living Arrangements House Safety & Behavioral: Feels Safe in Current Yes Environment Been Physically Hurt or No Threatened By a Person Suicidal Ideation Description None Tobacco & Substance use: Smoking Status Never smoker alcohol intake frequency 0-2 drinks per day Substance Use Type does not use Meds Home Medications and Allergies Home Medications Medication Instructions Recorded Confirmed Type prazosin 1 mg capsule 2 mg PO HS #180 cap 05/24/18 04/04/21 Rx loratadine 10 mg tablet 10 mg PO QDAYP PRN #90 tab 05/31/18 04/04/21 Rx meloxicam 15 mg tablet 15 mg PO QDAY #90 tab 06/01/18 04/04/21 Rx montelukast 10 mg tablet 10 mg PO QDAY #90 tab 06/01/18 04/04/21 Rx omeprazole 20 mg capsule,delayed 20 mg PO QDAY #90 cap 06/01/18 04/04/21 Rx release venlafaxine 75 mg capsule,extended 75 mg PO QDAY #90 cap 06/01/18 04/04/21 Rx release 24 hr Allergies Allergy/AdvReac Type Severity Reaction Status Date / Time Penicillins [PENICILLINS] Allergy Severe ANAPHYLAXIS Verified 04/03/21 20:40 Sulfa (Sulfonamide Allergy Intermediate HIVES Verified 04/03/21 20:40 Antibiotics) [SULFA (SULFONAMIDE ANTIBIOTICS)] Review of Systems Review of Systems ROS: Yes All systems reviewed with the patient and are negative except as o therwise documented Exam Vital Signs (past 8 hours): - 04/04/21 00:30 04/04/21 03:10 Temperature 97.3 F L 97.9 F Pulse Rate 70 72 Respiratory Rate 18 16 Blood Pressure 130/73 134/80 Pulse Oximetry 97 Oxygen Delivery Method Room Air Narrative Exam Narrative: Afebrile vital signs are stable Patient is alert and oriented x3 and is an excellent historian. She is lying in hospital bed with a cloth over her head in no apparent distress HEENT: Unremarkable Neck: Soft, supple, no lymphadenopathy or masses Chest: Clear to auscultation without wheezes rhonchi or crackles Cor: Regular rate and rhythm without any murmur rubs or gallops. There is no pain reproduced with palpation of the anterior precordium Abdomen: Positive bowel sounds, soft, nontender, nondistended, obese Extremities: No edema, pulses intact Neurologic exam is nonfocal Skin no rashes Objective Labs Result Diagrams: 04/03/21 20:49 04/03/21 20:49 Labs: Laboratory Results - last 24 hr 04/03/21 04/03/21 04/03/21 20:49 20:49 20:49 WBC 8.9 RBC 4.12 Hgb 13.0 Hct 37.9 MCV 91.9 MCH 31.5 MCHC 34.3 RDW 12.4 Plt Count 298 Neut % (Auto) 61.7 Lymph % (Auto) 27.1 [place] % (Auto) 6.7 Eos % (Auto) 3.3 Baso % (Auto) 1.2 Neut # (Auto) 5500 Lymph # (Auto) 2400 [place] # (Auto) 600 Eos # (Auto) 300 Baso # (Auto) 100 PT 10.8 INR 1.0 APTT 35 D-Dimer Sodium 139 Potassium 4.2 Chloride 103 Carbon Dioxide 23 BUN 13 Creatinine 0.74 Estimated GFR > 60.0 BUN/Creatinine Ratio 17.6 Glucose 121 H Calcium 9.8 Total Bilirubin 0.5 AST 49 H ALT 64 H Alkaline Phosphatase 84 Total Creatine Kinase 62 CK-MB (CK-2) TNP CK-MB (CK-2) Rel Index TNP Troponin I < 0.012 Total Protein 8.0 Albumin 4.9 Globulin 3.1 Albumin/Globulin Ratio 1.6 Lipase 120 Serum , Qual SARS-CoV-2 (PCR) 04/03/21 04/03/21 04/03/21 20:49 20:49 22:02 WBC RBC Hgb Hct MCV MCH MCHC RDW Plt Count Neut % (Auto) Lymph % (Auto) [place] % (Auto) Eos % (Auto) Baso % (Auto) Neut # (Auto) Lymph # (Auto) [place] # (Auto) Eos # (Auto) Baso # (Auto) PT INR APTT D-Dimer < 200 Sodium Potassium Chloride Carbon Dioxide BUN Creatinine Estimated GFR BUN/Creatinine Ratio Glucose Calcium Total Bilirubin AST ALT Alkaline Phosphatase Total Creatine Kinase CK-MB (CK-2) CK-MB (CK-2) Rel Index Troponin I Total Protein Albumin Globulin Albumin/Globulin Ratio Lipase Serum , Qual Negative SARS-CoV-2 (PCR) Negative Assessment & Plan Assessment & Plan narrative: 45-year-old female with a strong family history of presumed coronary artery disease with morbid obesity and mild hypertension with left anterior chest pain that is resolved with nitro paste Plan: Patient is mid to the hospital to rule out for myocardial infarction. She has echo that is pending. She had negative CK and troponin repeat this morning is pending. Her vital signs are stable and she has had no further chest pain. She is having a headache from the nitro paste. The nitropaste will be removed. We will do a stress Mibi for further risk stratification and pending these results will treat further. I do anticipate recommendation to start a statin to decrease her risk given other risk factors. 2. GERD. I do not think that this is etiology of her pain though suspicious that her pain developed while she was eating dinner. She does not have any exertional chest pain. Plan: Will continue on proton pump inhibitor 3. Anxiety and depression stable Plan: Continue Effexor and prazosin Assessment number for. Migraine headaches worsen due to nitropaste Plan: Stop nitro paste Continue propanolol will hold this morning for stress testing Code status is full code
[2021-04-04 08:41] LABS: Creatine Kinase 45 U/L (30-135)
[2021-04-04 08:42] LABS: Alanine Aminotransferase 57 IU/L (<35); Albumin 4.1 g/dL (3.5-5.0); Albumin Globulin Ratio 1.5 (1.0-2.8); Alkaline Phosphatase 67 U/L (38-126); Aspartate Aminotransferase 45 IU/L (14-36); BUN Creatinine Ratio 26.8 (6-22); Bilirubin Total 0.8 mg/dL (0.2-1.3); Blood Urea Nitrogen 15 mg/dL (7-17); Calcium 9.2 mg/dL (8.4-10.2); Carbon Dioxide 25 mmol/L (22-32); Chloride 104 mmol/L (98-107); Estimated Glomerular Filt Rate > 60.0 mL/min (>60); Globulin 2.8 g/dL (1.7-4.1); Glucose 146 mg/dL (70-100); HEMOLYSIS < 15 (0-50); Potassium 4.2 mmol/L (3.4-5.1); Sodium 136 mmol/L (137-145); Total Protein 6.9 g/dL (6.3-8.2)
[2021-04-04 08:53] LABS: Troponin I < 0.012 ng/mL (0.01-0.034)
[2021-04-04] MEDS: VENLAFAXINE ER 75 MG CAP PO (10:04)
[2021-04-04] MEDS: PANTOPRAZOLE DR 20 MG TABLET PO (10:04)
--- NOTE | 2021-04-04 14:41 | CM.DANOTE ---
Discharge Planning/Care Management DCP: assessment: case received, EMR reviewed. Discussed in Team Rounds. Pt is a 45 year old female who admitted late last night to care of Dr. Marleni Rogers. PCP: Kacie Berry. [facility] Pt is undergoing testing for a rule out NM per Dr. Rogers. ECHO and Stress test in progress today. Expect she will d/c home later today if deemed stable for the home setting...will check in again tomorrow to see if she is still here and follow prn. CM Discharge Assessment Start: 04/04/21 14:40 Freq: Status: Active Protocol: Document 04/04/21 14:40 ITV (Rec: 04/04/21 14:41 ITV [id number]) Discharge Planning Assessment Advance Directives? No History Provided By Patient,Medical Record Has Patient been admitted in last 30 No days? Prior Living Arrangements House Household Members spouse: Armand Independent with ADL's Yes Is patient alert and oriented? Yes
--- NOTE | 2021-04-04 18:29 | P.DS_ITS ---
History of Present Illness History of Present Illness Chief complaint: chest pain, up left arm and neck Narrative: This is a very pleasant 45-year-old female who is followed by KYE Baca, for anxiety, PTSD, migraine headaches, hyperlipidemia, GERD who presents to emergency department with complaints of sudden onset of left anterior chest pain. Patient was in her usual state health last night when she was enjoying the nice dinner with her daughter and family. They were having hamburgers salad and she did have a glass a wine and then she developed left anterior chest pain that radiated to her left shoulder. She had associated nausea but no shortness of breath diaphoresis. She did become dizzy as well. She called the nursing line and they recommended she be evaluated in the ER. She was evaluated in the ER and was found to have normal CK and troponin and an EKG however they did put nitro paste on and that resolved her pain. She has had no further chest pain since last night. She is having a headache this morning. She has a history of migraine headaches and this is not a severe migraine. She typically takes [id number] Excedrin for her headaches and if it is severe she takes Imitrex. She is on propanolol regularly for migraine prophylaxis. Of note she was recently evaluated and treated for diverticulitis in mid February and was treated with Flagyl and Cipro and her symptoms have completely resolved. Past medical history: 1. Migraine headaches 2. Mixed hyperlipidemia 3. GERD 4. Seasonal allergies 5. Diverticulitis 6. Depression anxiety 7. PTSD 8. Normal spontaneous vaginal deliveries x2 9. History of BRCA positive in mom but patient was tested and is negative 10. Morbid obesity Current medications: Per panel a, Singulair, prazosin 2 mg at bedtime, Claritin 10 mg daily, venlafaxine ER 75 mg daily, meloxicam 15 mg daily but she takes every other day, omeprazole 20 mg daily Allergies: Penicillin and sulfa Past surgical history 1. Two thousand twelve arthroscopy of her right knee she has had several of these 2. 2011 for rotator cuff repair Family history: Patient's father at 53 due to sudden cardiac arrest. He had had a history of a heart valve replacement in 2014 Mom is alive and has a history of cervical cancer also is BRCA positive Older brother was recently diagnosed with type 2 diabetes. 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 She denies any decreased exercise tolerance. She denies any chest pain with exertion. She denies any dyspnea on exertion. Patient denies any change in her bowels. She denies any change in her bladder function. She denies any rashes or fevers or coughs or chills Patient denies any GERD Discharge Providers Provider Date of admission: 04/03/21 23:25 Discharge Date: 04/04/21 Primary care physician: KYE Baca Consults: none Discharge provider: Sabi Rogers MD Summary Hospital Course Discharge Diagnosis: Atypical Chest Pain, ruled out for AMI Migraine Hospital Course: Patient admitted to hospital for chest pain and ruled out for AMI and stress mibi negative and echo wnl and vital sign stable and patient sent home in stable condition. Status at Discharge Cognitive/behavioral status at discharge: oriented Functional status at discharge: independent ambulation Overall status at discharge: patient is back to baseline Exam Vital Signs (past 8 hours): - 04/04/21 11:51 04/04/21 15:20 04/04/21 17:00 Temperature 98.2 F 98.0 F Pulse Rate 56 L 68 Respiratory Rate 15 17 Blood Pressure 127/79 127/73 Pulse Oximetry 100 100 100 Oxygen Delivery Method Room Air Oxygen Flow Rate 0 Narrative Exam Narrative: chest wnl cor rrr tender to palpation over Left anterior precordium and left breast ext wnl Objective Labs Result Diagrams: 04/03/21 20:49 04/04/21 08:15 Labs: Laboratory Results - last 24 hr 04/03/21 04/03/21 04/03/21 20:49 20:49 20:49 WBC 8.9 RBC 4.12 Hgb 13.0 Hct 37.9 MCV 91.9 MCH 31.5 MCHC 34.3 RDW 12.4 Plt Count 298 Neut % (Auto) 61.7 Lymph % (Auto) 27.1 [place] % (Auto) 6.7 Eos % (Auto) 3.3 Baso % (Auto) 1.2 Neut # (Auto) 5500 Lymph # (Auto) 2400 [place] # (Auto) 600 Eos # (Auto) 300 Baso # (Auto) 100 PT 10.8 INR 1.0 APTT 35 D-Dimer Sodium 139 Potassium 4.2 Chloride 103 Carbon Dioxide 23 BUN 13 Creatinine 0.74 Estimated GFR > 60.0 BUN/Creatinine Ratio 17.6 Glucose 121 H Calcium 9.8 Total Bilirubin 0.5 AST 49 H ALT 64 H Alkaline Phosphatase 84 Total Creatine Kinase 62 CK-MB (CK-2) TNP CK-MB (CK-2) Rel Index TNP Troponin I < 0.012 Total Protein 8.0 Albumin 4.9 Globulin 3.1 Albumin/Globulin Ratio 1.6 Lipase 120 Serum , Qual SARS-CoV-2 (PCR) 04/03/21 04/03/21 04/03/21 20:49 20:49 22:02 WBC RBC Hgb Hct MCV MCH MCHC RDW Plt Count Neut % (Auto) Lymph % (Auto) [place] % (Auto) Eos % (Auto) Baso % (Auto) Neut # (Auto) Lymph # (Auto) [place] # (Auto) Eos # (Auto) Baso # (Auto) PT INR APTT D-Dimer < 200 Sodium Potassium Chloride Carbon Dioxide BUN Creatinine Estimated GFR BUN/Creatinine Ratio Glucose Calcium Total Bilirubin AST ALT Alkaline Phosphatase Total Creatine Kinase CK-MB (CK-2) CK-MB (CK-2) Rel Index Troponin I Total Protein Albumin Globulin Albumin/Globulin Ratio Lipase Serum , Qual Negative SARS-CoV-2 (PCR) Negative 04/04/21 04/04/21 08:15 08:15 WBC RBC Hgb Hct MCV MCH MCHC RDW Plt Count Neut % (Auto) Lymph % (Auto) [place] % (Auto) Eos % (Auto) Baso % (Auto) Neut # (Auto) Lymph # (Auto) [place] # (Auto) Eos # (Auto) Baso # (Auto) PT INR APTT D-Dimer Sodium 136 L Potassium 4.2 Chloride 104 Carbon Dioxide 25 BUN 15 Creatinine 0.56 Estimated GFR > 60.0 BUN/Creatinine Ratio 26.8 H Glucose 146 H Calcium 9.2 Total Bilirubin 0.8 AST 45 H ALT 57 H Alkaline Phosphatase 67 Total Creatine Kinase 45 CK-MB (CK-2) TNP CK-MB (CK-2) Rel Index TNP Troponin I < 0.012 Total Protein 6.9 Albumin 4.1 Globulin 2.8 Albumin/Globulin Ratio 1.5 Lipase Serum , Qual SARS-CoV-2 (PCR) PFSH Family History Father Age: 69 Heart disease Grandfather Age: 93 Skin cancer (melanoma) Grandmother Stroke Grandfather Cancer Grandmother Stroke Social History household members: spouse Smoking Status: Never smoker Discharge Assessment & Plan Assessment and Plan Assessment: Atypical chest pain; suspect musculoskeletal ruled out AMI stress mibi, echo wnl migraine anxiety gerd djd Plan of Treatment: discharge home in stable condition f/u with Kacie Berry next week continue outpt meds except take meloxicam daily Discharge Plan Discharge Plan Patient Disposition: Home Discharge orders & Medications Prescriptions: Continued prazosin 1 mg capsule 2 mg PO HS Qty: 180 RF: 3 loratadine 10 mg tablet 10 mg PO QDAYP PRN (Reason: allergy symptoms) Qty: 90 RF: 3 montelukast [Singulair] 10 mg tablet 10 mg PO QDAY Qty: 90 RF: 3 omeprazole 20 mg capsule,delayed release(DR/EC) 20 mg PO QDAY Qty: 90 RF: 3 meloxicam 15 mg tablet 15 mg PO QDAY Qty: 90 RF: 1 venlafaxine [Effexor XR] 75 mg capsule,extended release 24hr 75 mg PO QDAY Qty: 90 RF: 1 Follow up/Referrals: Kacie Berry ARNP [Primary Care Provider] - Discharge Data Primary Care Provider: Kacie Berry Attending Provider: Silverio Berry
--- NOTE | 2021-04-04 19:02 | PC.NURSE ---
Discharge note: Patient walked out on her own power, accompanied by this RN to private vehicle. All belongings were collected and room checked before discharge. Discharge instructions and packet given to patient, acknowledged teaching and signed discharge. IV and telemetry removed prior to discharge.
== END 2021-04-04 19:00 | disposition home or self-care (01) ==
LOC: ED 22:32 → AC 23:29
PROVIDERS: Admitting Provider Family Medicine; Emergency Provider Emergency Medicine; PCP Internal Medicine; Referring Provider Emergency Medicine; Visit Provider Family Medicine
DX: R07.9 Chest pain, unspecified (principal); F32.9 Major depressive disorder, single episode, unspecified; F41.9 Anxiety disorder, unspecified; F43.10 Post-traumatic stress disorder, unspecified; K21.9 Gastro-esophageal reflux disease without esophagitis; E78.2 Mixed hyperlipidemia; G43.909 Migraine, unspecified, not intractable, without status migrainosus; R42 Dizziness and giddiness; T78.49XA Other allergy, initial encounter; E66.01 Morbid (severe) obesity due to excess calories; Z20.822 Contact with and (suspected) exposure to COVID-19
CPT/HCPCS: 36415; 71045; 78451; 80053; 82550; 83690; 84484; 84703; 85025; 85379; 85610; 85730; 87635; 93005; 93017; 93306; 96361; 96374; 96376; 99284; C9803; G0378; A9502; J2405

== ENCOUNTER → 2021-08-28 08:57 | Outpatient (CLI) | payer OTHER, SELFPAY ==
[2021-04-04 00:28] VITALS: BMI 43.9
--- NOTE | 2021-08-28 | DI.US.S_ITS ---
PROCEDURE: US ABDOMEN LIMITED INDICATIONS: ELEVATED LIVER FUNCTION TESTS TECHNIQUE: Real-time focused scanning was performed of the abdomen, with image documentation. COMPARISON: [facility], CT, CT ABDOMEN PELVIS W CON, 03/09/2021, 12:19. FINDINGS: Liver: The liver is at the upper limits of normal in demonstrates increased echogenicity consistent with hepatic steatosis. A focal area of fatty sparing measuring 2.2 x 1.5 x 1.3 centimeters is seen in the left lobe of the liver, also visualized on prior CT. Gallbladder: The gallbladder has no gallstones, pericholecystic fluid, gallbladder wall thickening, or surrounding inflammatory change. Biliary tree: Common bile duct measures 4.2 millimeters. No intrahepatic biliary ductal dilatation. Pancreas: The head and body are visualized and appear normal. The tail is not well seen. IMPRESSION: 1. Hepatic steatosis with an area of focal fatty sparing in the left lobe. 2. No acute ultrasound abnormality. Dictated by: Luis Eduardo Trejo M.D. on 08/28/2021 at 9:49 Approved by: Luis Eduardo Trejo M.D. on 08/28/2021 at 9:51
== END ==
PROVIDERS: PCP Internal Medicine; Referring Provider Internal Medicine; Visit Provider Internal Medicine
DX: R79.89 Other specified abnormal findings of blood chemistry (principal); K76.0 Fatty (change of) liver, not elsewhere classified
CPT/HCPCS: 76705

== ENCOUNTER 2023-01-07 19:37 | Emergency (ER) | payer OTHER, SELFPAY ==
[2021-04-04 00:28] VITALS: BMI 43.9
[2023-01-07 19:43] VITALS: BP 139/90; PULSE 81; RESP 16; TEMP 36.1; O2SAT 99; BMI 44.1
== END 2023-01-07 21:45 | disposition left against medical advice (07) ==
PROVIDERS: Emergency Provider Emergency Medicine; PCP Internal Medicine
CPT/HCPCS: 99281

== ENCOUNTER → 2023-07-08 14:11 | Outpatient (CLI) | payer OTHER, SELFPAY ==
[2021-04-04 00:28] VITALS: BMI 43.9
--- NOTE | 2023-07-08 | DI.MG.S_ITS ---
BILATERAL DIGITAL SCREENING MAMMOGRAM 3D/2D WITH CAD: 07/08/2023 CLINICAL: Routine screening. Family history of breast cancer. Comparison is made to exams dated: 11/19/2019 mammogram, 10/07/2018 mammogram, and 08/17/2017 mammogram - [facility]. Both breasts are heterogeneously dense, which may obscure small masses (category c / 51-75% glandular tissue). Current study was also evaluated with a Computer Aided Detection (CAD) system. No significant masses, calcifications, or other findings are seen in either breast. There has been no significant interval change. IMPRESSION: NEGATIVE There is no mammographic evidence of malignancy. A 1 year screening mammogram is recommended. Based on the Tyrer Cuzick model (a risk assessment model) the patient's lifetime risk is 19.5% and her 10 year risk is 4.5%. According to the ACR, ACS, and NCCN guidelines, an annual breast MRI exam along with mammogram is recommended if the patient's lifetime risk is 20% or greater. This exam was interpreted at Station ID: [id number]. NOTE: For mammograms, a report in lay terms will be sent to the patient. Approximately 15% of breast malignancies will not be visualized mammographically. In the management of a palpable breast mass, a negative mammogram must not discourage biopsy of a clinically suspicious lesion. Electronically Signed By: Valente campos/jose:07/09/2023 13:49:26 letter sent: Normal Exam ACR BI-RADS Category 1: Negative 3341F
== END ==
PROVIDERS: PCP Internal Medicine; Referring Provider Registered Nurse; Visit Provider Registered Nurse
DX: Z12.31 Encounter for screening mammogram for malignant neoplasm of breast (principal); Z80.3 Family history of malignant neoplasm of breast
CPT/HCPCS: 77063; 77067

== ENCOUNTER → 2024-01-25 16:32 | Outpatient (CLI) | payer OTHER, SELFPAY ==
[2021-04-04 00:28] VITALS: BMI 43.9
--- NOTE | 2024-01-25 16:34 | DI.RAD.S_ITS ---
PROCEDURE: XR KNEE RT 3V INDICATIONS: Injury to R foot TECHNIQUE: 3 views of the knee were acquired. COMPARISON: None. FINDINGS: Bones: No fractures or dislocations. No suspicious bony lesions. Tricompartmental degenerative changes of the right knee. Soft tissues: No joint effusion. No suspicious soft tissue calcifications. IMPRESSION: No acute bony abnormality or significant effusion. Tricompartmental osteoarthrosis. If there are persistent symptoms or clinical suspicion for pathology, then repeat radiographs or advanced imaging (CT or MRI) may be considered for further evaluation. Dictated by: Valente Mcnamara M.D. on 01/26/2024 at 9:53 Approved by: Valente Mcnamara M.D. on 01/26/2024 at 9:54
--- NOTE | 2024-01-25 16:34 | DI.RAD.S_ITS ---
PROCEDURE: XR FOOT RT MIN 3V INDICATIONS: Injury to R foot TECHNIQUE: 3 views of the foot were acquired. COMPARISON: None. FINDINGS: Bones: No fractures or dislocations. No suspicious bony lesions. Degenerative changes of the 1st metatarsophalangeal joint. Small plantar calcaneal enthesophyte. Soft tissues: No tibiotalar joint effusion. Achilles tendon appears normal. Soft tissue swelling overlying the distal aspect of the dorsal right forefoot. IMPRESSION: Distal right forefoot soft tissue swelling without underlying fracture or dislocation. Degenerative changes of the right 1st metatarsophalangeal joint. Plantar calcaneal enthesopathy. If there are persistent symptoms or clinical suspicion for pathology, then repeat radiographs or advanced imaging (CT or MRI) may be considered for further evaluation. Dictated by: Valente Mcnamara M.D. on 01/26/2024 at 9:55 Approved by: Valente Mcnamara M.D. on 01/26/2024 at 9:56
== END ==
PROVIDERS: PCP Internal Medicine; Referring Provider Physician Assistant; Visit Provider Physician Assistant
DX: M17.11 Unilateral primary osteoarthritis, right knee (principal); M77.31 Calcaneal spur, right foot; M79.89 Other specified soft tissue disorders; M25.561 Pain in right knee; M79.671 Pain in right foot
CPT/HCPCS: 73562; 73630

== ENCOUNTER → 2024-10-14 12:46 | Outpatient (CLI) | payer OTHER, SELFPAY ==
[2021-04-04 00:28] VITALS: BMI 43.9
--- NOTE | 2024-10-14 12:47 | DI.MG.S_ITS ---
BILATERAL DIGITAL SCREENING MAMMOGRAM 3D/2D WITH CAD: 10/14/2024 CLINICAL: Routine screening. Family history of breast cancer. Comparison is made to exams dated: 07/08/2023 mammogram, 11/19/2019 mammogram, 10/07/2018 mammogram, 08/17/2017 mammogram, and 08/11/2016 mammogram - [facility]. The breasts are heterogeneously dense, which may obscure small masses (category c / 51-75% glandular tissue). Current study was also evaluated with a Computer Aided Detection (CAD) system. No significant masses, calcifications, or other findings are seen in either breast. There has been no significant interval change. IMPRESSION: NEGATIVE There is no mammographic evidence of malignancy. A 1 year screening mammogram is recommended. Based on the Tyrer Cuzick model (a risk assessment model) the patient's lifetime risk is 18.5% and her 10 year risk is 4.5%. According to the ACR, ACS, and NCCN guidelines, an annual breast MRI exam along with mammogram is recommended if the patient's lifetime risk is 20% or greater. This exam was interpreted at Station ID: [id number]. NOTE: For mammograms, a report in lay terms will be sent to the patient. Approximately 15% of breast malignancies will not be visualized mammographically. In the management of a palpable breast mass, a negative mammogram must not discourage biopsy of a clinically suspicious lesion. Electronically Signed By: Kaylee Bruno M.D., Ph.D. petra/jose:10/15/2024 00:28:02 letter sent: Normal Exam ACR BI-RADS Category 1: Negative
== END ==
PROVIDERS: PCP Internal Medicine; Referring Provider Internal Medicine; Visit Provider Internal Medicine
DX: Z12.31 Encounter for screening mammogram for malignant neoplasm of breast (principal); Z80.3 Family history of malignant neoplasm of breast; R92.333 Mammographic heterogeneous density, bilateral breasts
CPT/HCPCS: 77063; 77067

== ENCOUNTER 2024-12-08 14:11 | Emergency (ER) | payer OTHER, SELFPAY ==
[2021-04-04 00:28] VITALS: BMI 43.9
[2024-12-08] VITALS (15 sets, daily range): BP systolic 138–165; BP diastolic 63–87; PULSE 74–90; RESP 14–18; TEMP 36.8; O2SAT 97–100; BMI 25.9
[2024-12-08 14:41] LABS: Appearance Urine UA CLEAR; Bilirubin Urine UA NEGATIVE (NEGATIVE); Color Urine UA YELLOW; Glucose Urine UA NEGATIVE (Negative); Ketones Urine UA NEGATIVE (NEGATIVE); Leukocyte Esterase Urine UA NEGATIVE (NEGATIVE); Nitrite Urine UA NEGATIVE (Negative); Occult Blood Urine UA TRACE-INTACT (Negative); Protein Urine UA NEGATIVE (Negative); Urobilinogen Urine UA 0.2 E.U./dL (0.2)
[2024-12-08 14:48] LABS: Add Manual Diff / Slide Review NO; Basophils Absolute Auto 100 /uL (0-100); Basophils Percent Auto 0.8 % (0-2); Eosinophils Absolute Auto 200 /uL (0-450); Eosinophils Percent Auto 1.3 % (2-4); Hematocrit 39.2 % (36-46); Hemoglobin 13.3 g/dL (12.0-16.0); Lymphocytes Absolute Auto 2500 /uL (1100-4500); Lymphocytes Percent Auto 14.7 % (25-40); Mean Corpuscular Volume 94.2 fL (80-100); Monocytes Absolute Auto 1200 /uL (0-900); Monocytes Percent Auto 7.2 % (3-14); Neutrophils Absolute Auto 13000 /uL (1500-7000); Platelet Count 336 X10^3/uL (150-400); Red Blood Cell Count 4.16 X10^6/uL (4.0-5.2); White Blood Cell Count 17.2 X10^3/uL (4.5-11.0)
[2024-12-08 14:53] LABS: Alanine Aminotransferase 39 IU/L (<35); Albumin 4.6 g/dL (3.5-5.0); Albumin Globulin Ratio 1.4 (1.0-2.8); Alkaline Phosphatase 83 U/L (38-126); Aspartate Aminotransferase 32 IU/L (14-36); BUN Creatinine Ratio 10.9 (6-22); Bilirubin Total 1.1 mg/dL (0.2-1.3); Blood Urea Nitrogen 7 mg/dL (7-17); Calcium 9.3 mg/dL (8.4-10.2); Carbon Dioxide 24 mmol/L (22-32); Chloride 102 mmol/L (98-107); Estimated Glomerular Filt Rate > 60 mL/min (>60); Globulin 3.2 g/dL (1.7-4.1); Glucose 104 mg/dL (70-100); HEMOLYSIS < 15 (0-50); Lipase 71 U/L (23-300); Potassium 3.8 mmol/L (3.4-5.1); Sodium 135 mmol/L (137-145); Total Protein 7.8 g/dL (6.3-8.2)
[2024-12-08 14:56] LABS: Bacteria Urine Occasional (0-1); RBC Urine 0-1/HPF (0-5/HPF); Squamous Epithelial Cell Urine 0-1 /HPF (0-5/HPF); Urine Volume 10mL (spun); WBC Urine 0-1/HPF (0-5/HPF)
[2024-12-08 14:57] LABS: Culture Indicated Urine Cult Not Indicated
--- NOTE | 2024-12-08 18:40 | ED_ITS ---
HPI - General Adult General Chief complaint: Abdominal Pain Stated complaint: Sent from PCP Diverticulitis Time Seen by Provider: 12/08/24 18:11 Source: patient Mode of arrival: Ambulatory History of Present Illness HPI narrative: Patient was a 49-year-old female. Is here for evaluation of several days of left lower quadrant abdominal pain. States she did have diarrhea a couple days ago but no diarrhea since then. No blood in his stool. Is having nausea but no vomiting. No fevers. No urinary changes. No prior abdominal surgeries. States that she has a history of diverticulitis and this feels similar to that. She contacted her primary care doctor who sent her to the emergency department. Related Data Previous Rx's Medication Instructions Recorded prazosin 1 mg capsule 2 mg (2 x 1 mg) PO HS #180 caps 05/24/18 loratadine 10 mg tablet 10 mg PO QDAYP PRN allergy 05/31/18 symptoms #90 tabs meloxicam 15 mg tablet 15 mg PO QDAY #90 tabs 06/01/18 montelukast 10 mg tablet 10 mg PO QDAY #90 tabs 06/01/18 (Singulair) omeprazole 20 mg capsule,delayed 20 mg PO QDAY #90 caps 06/01/18 release venlafaxine 75 mg capsule,extended 75 mg PO QDAY #90 caps 06/01/18 release 24 hr (Effexor XR) ciprofloxacin HCl 500 mg tablet 500 mg PO BID 10 days #20 tabs 12/08/24 hydrocodone 5 mg-acetaminophen 325 1 tab PO Q4-6H PRN pain #10 tabs 12/08/24 mg tablet metronidazole 500 mg tablet 500 mg PO TID 10 days #30 tabs 12/08/24 ondansetron 4 mg disintegrating 4 mg PO Q6H PRN nausea and 12/08/24 tablet vomiting #10 tabs Allergies Allergy/AdvReac Type Severity Reaction Status Date / Time Penicillins [PENICILLINS] Allergy Severe ANAPHYLAXIS Verified 12/08/24 14:19 Sulfa (Sulfonamide Allergy Intermediate HIVES Verified 12/08/24 14:19 Antibiotics) [SULFA (SULFONAMIDE ANTIBIOTICS)] Review of Systems Review of Systems ROS Unobtainable: All systems reviewed & are unremarkable except as noted in HPI and below Patient History Family History Father Age: 69 Heart disease Grandfather Age: 93 Skin cancer (melanoma) Grandmother Stroke Grandfather Cancer Grandmother Stroke Social History household members: spouse Smoking Status: Never smoker Smoking Status: Never smoker alcohol intake frequency: holidays/special occasions only Exam Initial Vital Signs Initial Vital Signs: Vital Signs Temperature 98.3 F 12/08/24 14:15 Pulse Rate 88 12/08/24 14:15 Respiratory Rate 18 12/08/24 14:15 Blood Pressure 160/84 H 12/08/24 14:15 Pulse Oximetry 99 12/08/24 14:15 Oxygen Delivery Method Room Air 12/08/24 14:15 Const General: cooperative, comfortable and No ill appearing HENMT Head: normal to inspection and normocephalic Resp Effort & Inspection: normal respiratory effort Cardio Rate: regular rate GI Inspection: non-distended Palpation: soft, No firm, No guarding and tender Neuro General: patient alert, patient awake and moves all extremities Course Orders Ordered: ED Orders 12/08/24 14:25 Urinalysis and Microscopic Stat 12/08/24 14:30 Complete Blood Count AUTO DIFF Stat Comprehensive Metabolic Panel Stat Lipase Stat 12/08/24 18:40 CT abdomen pelvis w con Stat Discontinued Medications Hydrocodone Bitart/Acetaminophen (Hydrocodone/Acet 5/325 Prepack) 1 bottle MISC DIRECTED ONE Stop: 12/08/24 20:31 Last Admin: 12/08/24 20:35 Dose: 1 bottle Documented By: DARREN Ciprofloxacin (Ciprofloxacin 250 Mg Tablet) 500 mg PO NOW ONE Stop: 12/08/24 20:31 Last Admin: 12/08/24 20:35 Dose: 500 mg Documented By: DARREN Acetaminophen (Ofirmev) 1,000 mg in 100 mls @ 400 mls/hr IV NOW ONE Stop: 12/08/24 20:28 Last Infusion: 12/08/24 20:36 Dose: Infused Documented By: Admin: 12/08/24 20:20 Dose: 400 mls/hr Documented By: DARREN Metronidazole (Metronidazole 500 Mg Tablet) 500 mg PO NOW ONE Stop: 12/08/24 20:31 Last Admin: 12/08/24 20:35 Dose: 500 mg Documented By: DARREN Ondansetron HCl (Ondansetron 4 Mg/2 Ml Inj) 4 mg IV NOW PRN PRN Reason: Nausea And Vomiting Ondansetron HCl (Ondansetron 4 Mg Odt) 4 mg PO NOW PRN PRN Reason: Nausea And Vomiting Ondansetron HCl (Ondansetron 4 Mg Odt Prepack) 1 bottle MISC DIRECTED ONE Stop: 12/08/24 20:31 Last Admin: 12/08/24 20:36 Dose: 1 bottle Documented By: DARREN Vital Signs Vital signs: Vital Signs - 8 hr 12/08/24 14:15 12/08/24 14:32 12/08/24 14:32 Temperature 98.3 F Pulse Rate 88 86 Respiratory Rate 18 Blood Pressure 160/84 H 142/87 H Pulse Oximetry 99 98 Oxygen Delivery Method Room Air 12/08/24 15:00 12/08/24 15:00 12/08/24 15:30 Temperature Pulse Rate 82 75 Respiratory Rate Blood Pressure 143/63 H Pulse Oximetry 99 98 99 Oxygen Delivery Method Room Air 12/08/24 15:30 12/08/24 16:00 12/08/24 16:00 Temperature Pulse Rate 74 Respiratory Rate Blood Pressure 149/83 H 152/69 H Pulse Oximetry 100 Oxygen Delivery Method 12/08/24 16:30 12/08/24 16:30 12/08/24 17:00 Temperature Pulse Rate 75 82 Respiratory Rate Blood Pressure 145/83 H Pulse Oximetry 99 98 Oxygen Delivery Method 12/08/24 17:00 12/08/24 17:30 12/08/24 17:30 Temperature Pulse Rate 81 Respiratory Rate Blood Pressure 143/80 H 156/74 H Pulse Oximetry 100 Oxygen Delivery Method 12/08/24 18:00 12/08/24 18:00 12/08/24 18:30 Temperature Pulse Rate 82 88 Respiratory Rate Blood Pressure 165/82 H Pulse Oximetry 98 97 Oxygen Delivery Method 12/08/24 18:30 12/08/24 19:02 12/08/24 19:30 Temperature Pulse Rate 87 87 Respiratory Rate 18 Blood Pressure 145/76 H Pulse Oximetry 98 97 Oxygen Delivery Method 12/08/24 20:00 12/08/24 20:30 12/08/24 20:46 Temperature Pulse Rate 88 83 90 Respiratory Rate 18 14 Blood Pressure 138/86 Pulse Oximetry 98 98 98 Oxygen Delivery Method Room Air Medical Decision Making Lab Data Lab results reviewed: Yes I reviewed the patient's lab results. 12/08/24 14:30 12/08/24 14:30 Labs: Lab Results 12/08/24 12/08/24 Range/Units 14:25 14:30 WBC 17.2 H (4.5-11.0) X10^3/uL RBC 4.16 (4.0-5.2) X10^6/uL Hgb 13.3 (12.0-16.0) g/dL Hct 39.2 (36-46) % MCV 94.2 (80-100) fL MCH 32.0 (26-34) PG MCHC 34.0 (30-36) % RDW 13.0 (11.6-14.8) % Plt Count 336 (150-400) X10^3/uL Neut % (Auto) 76.0 H (50-75) % Lymph % (Auto) 14.7 L (25-40) % [place] % (Auto) 7.2 (3-14) % Eos % (Auto) 1.3 L (2-4) % Baso % (Auto) 0.8 (0-2) % Neut # (Auto) 26680 H (1930-6597) /uL Lymph # (Auto) 2500 (8056-3212) /uL [place] # (Auto) 1200 H (0-900) /uL Eos # (Auto) 200 (0-450) /uL Baso # (Auto) 100 (0-100) /uL Sodium 135 L (137-145) mmol/L Potassium 3.8 (3.4-5.1) mmol/L Chloride 102 (98-107) mmol/L Carbon Dioxide 24 (22-32) mmol/L BUN 7 (7-17) mg/dL Creatinine 0.64 (0.52-1.04) mg/dL Estimated GFR > 60 (>60) mL/min BUN/Creatinine Ratio 10.9 (6-22) Glucose 104 H (70-100) mg/dL Calcium 9.3 (8.4-10.2) mg/dL Total Bilirubin 1.1 (0.2-1.3) mg/dL AST 32 (14-36) IU/L ALT 39 H (<35) IU/L Alkaline Phosphatase 83 (38-126) U/L Total Protein 7.8 (6.3-8.2) g/dL Albumin 4.6 (3.5-5.0) g/dL Globulin 3.2 (1.7-4.1) g/dL Albumin/Globulin Ratio 1.4 (1.0-2.8) Lipase 71 (23-300) U/L Urine Color Yellow Urine Appearance Clear Urine pH 8.0 (4.5-8.0) Ur Specific [place] 1.010 (1.000-1.035) Urine Protein Negative (Negative) Urine Glucose (UA) Negative (Negative) g/dL Urine Ketones Negative (NEGATIVE) Urine Occult Blood Trace-intact (Negative) Urine Nitrate Negative (Negative) Urine Bilirubin Negative (NEGATIVE) Urine Urobilinogen 0.2 (0.2) E.U./dL Ur Leukocyte Esterase Negative (NEGATIVE) Urine RBC 0-1/hpf (0-5/HPF) Urine WBC 0-1/hpf (0-5/HPF) Ur Squamous Epith Cells 0-1 /hpf (0-5/HPF) Urine Bacteria Occasional (0-1) (None) Ur Culture Indicated? Cult not indicated Vol Urine Centrifuged 10ml (spun) Point of Care Testing Test Results Negative Urine Dip Bedside Urine Glucose Negative Bedside Urine Bilirubin - Negative Bedside Urine Ketone - Negative Urine Specific [place] 1.005 Bedside Urine Occult Blood +/- Bedside Urine pH 8.0 Bedside Urine Protein - Negative Bedside Urine Urobilinogen - Negative Bedside Urine Nitrite - Negative Bedside Urine Leukocytes - Negative Esterase Point of care testing: Point of Care Testing Test Results Negative Urine Dip Bedside Urine Glucose Negative Bedside Urine Bilirubin - Negative Bedside Urine Ketone - Negative Urine Specific [place] 1.005 Bedside Urine Occult Blood +/- Bedside Urine pH 8.0 Bedside Urine Protein - Negative Bedside Urine Urobilinogen - Negative Bedside Urine Nitrite - Negative Bedside Urine Leukocytes - Negative Esterase Imaging Data CT scan - abdomen/pelvis: Radiologist's Impression: PROCEDURE: CT ABDOMEN PELVIS W CON INDICATIONS: LLQ abd pain eval for diverticulitis TECHNIQUE: After the administration of intravenous contrast, axial sections acquired from the lung bases to the pubic symphysis. Coronal and sagittal reformats were performed. For radiation dose reduction, the following was used: automated exposure control, adjustment of mA and/or kV according to patient size. COMPARISON: [facility], CT, CT ABDOMEN PELVIS W CON, 03/09/2021, 12:19. FINDINGS: Image quality: Diagnostic. Lower Chest: No significant findings. ABDOMEN: Liver: No solid mass. Moderate to severe hepatic steatosis is seen. Gallbladder: No radiopaque gallstones or wall thickening. Biliary ducts: No biliary dilation. Pancreas: No ductal dilation. Spleen: Size is within normal limits. Adrenal Glands: No adrenal nodules. Kidneys and Ureters: No hydronephrosis. No solid mass. No complex renal cystic lesion which requires follow up. Stomach and Bowel: There is no bowel obstruction. No gastric or small bowel wall thickening. No evidence of acute appendicitis. Significant wall thickening and pericolonic fat stranding involving proximal sigmoid colon in left lower quadrant with marked narrowing of the lumen. No definite extra luminal air. No discrete drainable abscess collection. Peritoneum: No abnormal intraperitoneal fluid. No free air. Ventral Wall: No significant ventral hernia. Abdominal Nodes: No retroperitoneal or mesenteric adenopathy by size criteria. Vessels: Aorta and inferior vena cava are normal in size. PELVIS: Pelvic Organs: Unremarkable. Bladder: No bladder wall thickening, accounting for underdistention. Pelvic Nodes: No enlarged lymph nodes. Miscellaneous: No inguinal hernias are seen. Bones: No aggressive osseous abnormality. IMPRESSION: 1. Finding is consistent with acute diverticulitis involving proximal sigmoid colon in left lower quadrant. No discrete drainable abscess collection. No definite perforation. 2. No bowel obstruction. No other area of abnormal bowel wall thickening. No free fluid or free air. 3. Moderate to severe [place] steatosis unchanged from prior study. MDM Narrative Medical decision making narrative: CT scan today does show findings consistent with diverticulitis. No signs of perforation or abscess. Patient was tolerating oral intake. She was have leukocytosis but also has a source of infection with the diverticulitis. No indication for admission to the hospital. Given her allergies will start her on Cipro/Flagyl. Will also prescribed pain and nausea medication. We discussed the CT scan results. We discussed return precautions and follow-up instructions. Patient was expressed understanding and agreement. Discharge Plan Departure Patient Disposition: Home Clinical Impression: Diverticulitis Instructions: DI for Diverticulitis Activity Restrictions/Additional Instructions: I do recommend a bland diet/clear liquid diet for the next couple days. Your symptoms should start to improve after starting the antibiotics within the next 24-48 hours. Contact your primary doctor for a follow-up. Return to the emergency department for new symptoms. Prescriptions: New ondansetron 4 mg tablet,disintegrating 4 mg PO Q6H PRN (Reason: nausea and vomiting) Qty: 10 0RF hydrocodone-acetaminophen 5-325 mg tablet 1 tab PO Q4-6H PRN (Reason: pain) Qty: 10 0RF ciprofloxacin HCl 500 mg tablet 500 mg PO BID 10 Days Qty: 20 0RF metronidazole 500 mg tablet 500 mg PO TID 10 Days Qty: 30 0RF No Action prazosin 1 mg capsule 2 mg PO HS Qty: 180 3RF Rx Instructions: Take 2 capsules by mouth at bedtime loratadine 10 mg tablet 10 mg PO QDAYP PRN (Reason: allergy symptoms) Qty: 90 3RF montelukast [Singulair] 10 mg tablet 10 mg PO QDAY Qty: 90 3RF omeprazole 20 mg capsule,delayed release(DR/EC) 20 mg PO QDAY Qty: 90 3RF meloxicam 15 mg tablet 15 mg PO QDAY Qty: 90 1RF venlafaxine [Effexor XR] 75 mg capsule,extended release 24hr 75 mg PO QDAY Qty: 90 1RF Referrals: Kacie Berry ARNP [Primary Care Provider] - Stand Alone Forms: Patient Portal/API/Survey
[2024-12-08] MEDS: ACETAMINOPHEN IV 1,000 MG/100 ML VIAL 400 MG IV (20:20)
[2024-12-08] MEDS: HYDROCODONE/ACET 5/325 PREPACK 1 BOTTLE MISC (20:35)
[2024-12-08] MEDS: metroNIDAZOLE 500 MG TABLET PO (20:35)
[2024-12-08] MEDS: CIPROFLOXACIN 250 MG TABLET 500 MG PO (20:35)
[2024-12-08] MEDS: ONDANSETRON 4 MG ODT PREPACK 1 BOTTLE MISC (20:36)
== END 2024-12-08 20:48 | disposition home or self-care (01) ==
PROVIDERS: Emergency Medicine; Emergency Provider Emergency Medicine; PCP Internal Medicine
DX: K57.32 Diverticulitis of large intestine without perforation or abscess without bleeding (principal)
CPT/HCPCS: 36415; 74177; 80053; 81001; 81003; 81025; 83690; 85025; 96365; 99284; J0131; Q9967

== ENCOUNTER → 2025-08-30 16:13 | Outpatient (CLI) | payer OTHER, SELFPAY ==
[2025-07-12 10:20] VITALS: BMI 43.9
[2025-08-30 18:12] LABS: Add Manual Diff / Slide Review NO; Hematocrit 35.7 % (36-46); Hemoglobin 12.5 g/dL (12.0-16.0); Lymphocytes Absolute Auto 2400 /uL (1100-4500); Mean Corpuscular HGB Conc 34.9 % (30-36); Mean Corpuscular Hemoglobin 32.5 PG (26-34); Mean Corpuscular Volume 93.0 fL (80-100); Platelet Count 302 X10^3/uL (150-400)
[2025-08-30 18:20] LABS: Hemoglobin A1C% w Est Avg Glu 6.3 % (4.0-6.0)
[2025-08-30 18:55] LABS: HEMOLYSIS < 15 (0-50)
[2025-08-30 19:00] LABS: Albumin 4.7 g/dL (3.5-5.0); Blood Urea Nitrogen 19 mg/dL (7-17); Calcium 9.5 mg/dL (8.4-10.2); Carbon Dioxide 24 mmol/L (22-32); Chloride 101 mmol/L (98-107); Estimated Glomerular Filt Rate > 60 mL/min (>60); Glucose 120 mg/dL (70-99); Potassium 4.3 mmol/L (3.4-5.1); Sodium 133 mmol/L (137-145)
[2025-08-30 19:19] LABS: Vitamin D 25 Hydroxy (D3) 37.3 ng/mL (30.0-100.0)
[2025-08-30 19:51] LABS: Prealbumin 27.5 mg/dL (17.6-36.0)
== END ==
PROVIDERS: PCP Family Medicine; Referring Provider Orthopaedic Surgery; Visit Provider Orthopaedic Surgery
DX: Z01.818 Encounter for other preprocedural examination (principal); M25.312 Other instability, left shoulder
CPT/HCPCS: 36415; 80048; 82040; 82306; 83036; 84134; 85025; 99214

== ENCOUNTER 2025-09-13 09:28 | Day surgery (SDC) | payer OTHER, SELFPAY ==
[2025-07-12 10:20] VITALS: BMI 43.9
[2025-09-06 09:05] VITALS: BMI 41.8
[2025-09-13] VITALS (11 sets, daily range): BP systolic 132–173; BP diastolic 70–90; PULSE 66–95; RESP 12–28; TEMP 36.3–36.6; O2SAT 93–100
[2025-09-13] MEDS: LACTATED RINGERS 1,000 ML 42 ML IV ×2 (10:24→12:36)
[2025-09-13] MEDS: VANCOMYCIN 1,000 MG/200 ML PIGGYBACK 200 MG IV (10:32)
[2025-09-13] MEDS: APREPITANT 40 MG CAPSULE PO (10:49)
[2025-09-13] MEDS: SCOPOLAMINE 1 PATCH TOP (10:49)
--- NOTE | 2025-09-13 10:58 | PM.PREOP ---
Pre-operative Note Interval Note History & Physical reviewed/Exam performed by Physician: Yes Changes to H&P: No
--- NOTE | 2025-09-13 11:05 | SUR.PREOP ---
Block start time [1058] . Monitoring initiated and maintained throughout procedure. Oxygen and medications given per anesthesiologist instructions. Patient remained stable throughout procedure, no adverse reactions noted. Block end time 1103].
--- NOTE | 2025-09-13 12:04 | SUR.OPER ---
Right Lateral on padded OR bed with peñaloza bag positioner, head on pillow, gel axillary roll in place, bottom leg bent with gel pad under knee to foot, upper leg straight and supported with pillows. Operative arm secured in arthrex shoulder positioning suspension device. non-operative arm secured on padded arm board. Safety belt at torso, tape at hip, abdomen, upper leg, and over blanket securing lower legs.
[2025-09-13] MEDS: SODIUM CHLORIDE IRRIG SOLUTION 3,000 ML, EPINEPHrine 1 MG IRR ×9 (12:17→13:13)
--- NOTE | 2025-09-13 13:56 | PM.OP.1 ---
Operative Date/Time/Diagnoses Date of procedure: 09/13/25 Time of procedure: 12:00 Pre-op diagnosis: Left shoulder anterior labral tear and possible slap tear Post-op diagnosis: same Procedure & Clinicians Procedure: Left shoulder anterior labral repair and biceps tenodesis Same procedure(s) as scheduled: Yes Surgeon: Gabriel Gillespie Assisted?: Yes Buffing Wheel Former Automatic: Janki Tracey Anesthesia Type: General Operative Notes Findings: Anterior labral tear from the 3 o'clock to 6 o'clock position. Posterior SLAP tear. Specimen(s): none sent Applied: none Estimated Blood Loss (mL): 20 Blood products transfused: none Procedure in detail: Patient Name: REINALDO QUEZADA Preoperative diagnosis: Left shoulder Anterior Labral Tear; possible SLAP tear Procedure performed: Diagnostic Arthroscopy, Anterior Labral Repair; biceps tenodesis Postoperative diagnosis: Same Primary Surgeon: Gabriel Gillespie MD Secondary Surgeon: Anesthesia: General EBL: 25 ml Implants: Arthrex Knotless Suturtak x[] Indication for Surgery: Nonoperative managment failed to resolve symptoms. The risks, benefits, and alternatives were discussed. Risks included pain, bleeding, infection, damage to nearby structures, lack of symptom relief, implant complications, stiffness, need for further surgeries, DVT, PE, stroke, and even . They signed a written consent form. Examination Under Anesthesia: ROM: Forward flexion 170, abduction 170 Anterior load and shift: Grade 2 Posterior load and shift: Grade 1 Inferior sulcus: Grade 1 Diagnostic Findings: Rotator interval: Normal Biceps tendon & SLAP: Biceps tendon intact, posterior SLAP tear. Subscapularis: Intact Rotator Cuff: intact HAGL: intact Labrum: anterior labral tear from 3:00 to 6:00 a.m.. Glenoid Cartilage: Grade 2 chondromalacia Humeral Head Cartilage: grade 1 chondromalacia Procedure in Detail: The patient was met in the preoperative holding on the day of the procedure. Operative extremity was signed. Consent was verified. The patient desired to proceed. Regional anesthesia was obtained in the preoperative area. They were brought to the operating room and surrendered to anesthesia. Once general anesthesia was obtained they were placed in the lateral decubitus position with the operative side up. An axillary roll was placed and all bony prominences were well-padded. They were then prepped and draped in the standard sterile fashion. A surgical timeout was held to confirm the patient procedure, identity, laterality, allergies, images, and antibiotics. All were in agreement and we proceeded. Balanced suspension was applied and a standard diagnostic arthroscopy was performed utilizing posterior and anterior superior portal sites. The anterior superior portal site was created under direct visualization. The findings of the diagnostic arthroscopy can be found above. Labral Repair w/ Capsulorrhaphy: An anterior mid glenoid portal was established under direct visualization. The labrum was prepared using a combination of high and low angled elevators, the arthroscopic shaver, and the pineapple rasp. The extent of the labral tear was from approximately 3o'clock to 6o'clock (with 3 o'clock being direct anterior). The labrum was systematically freed up until it had good mobility and the underlying muscle was visible. The pineapple rasp was used to abrade the glenoid neck and induce bleeding. The arthroscopic shaver was used to debride any friable tissue. The first anchor was placed at the 6 O'clock position and the appropriate suture lasso was used to pass the suture through the capsule and labral tissue in a location to cause an appropriate capsule shift. The anchor was then secured in knotless fashion. This was repeated at the 5, 4 o'clock positions. An excellent capsular shift and labral bumper were obtained. Balanced suspension was removed and the humeral head was centered on the glenoid. Final images were taken. Biceps tendon was cut using arthroscopic biter and debrided back with a sucker shaver. Mini-Open Subpectoral Biceps Tenodesis: We then turned our attention to the biceps tenodesis, a 4 cm longitudinal incision was made near the axillary fold centered over the inferior border of the pectoralis major tendon. Electrocautery was used to obtain hemostasis. The fascia was opened with dissection scissors in line with the course of the neurovascular structures. Blunt digital dissection was used to identify the intertubercular groove just under the pectoralis major tendon. The long head of the biceps tendon was visualized within this interval. The short head of the biceps was retracted with my finger and the right angle was used to deliver the tendon of the long head of the biceps out of the wound. The groove was then prepared with a feng elevator. The drill for the biceps button was placed at the inferior edge of the pec major tendon within the groove. The drill was then removed and the button placed. The tendon was then reduced down on to the surface of the humerus. The suture limbs were cut and the wound was irrigated. The subcutaneous tissue was closed using interrupted 2-0 Vicryl followed by running 3-0 Monocryl in subcuticular fashion. The incisions were closed with 3-0 Nylon and a sterile dressing was applied. Postoperative Plan: 0-2 weeks-Sling at all times. Pendulum exercises 5 times per day. 2-6 weeks-Passive range of motion with the following limits: FF to 120, ER to 30, abduction to 90 6-12 weeks-Active range of motion in all planes without limitation. Isometric rotator cuff strengthening is allowed 12-16 weeks-Gradually increase strengthening 16 weeks and beyond-Introduce dynamic activities Gabriel Gillespie MD Complications: none Post-operative Condition: stable Disposition: PACU
--- NOTE | 2025-09-13 16:06 | SUR.PHASEII ---
1532 - pt up to assist with dressing for discharge - pt became light headed, stated she felt faint, pale in color - pt returned to bed - BP 132/78 , cool rag applied to forehead, pt stated she already felt an improvement. Pt allowed to rest until ready to be discharged - report given to outpatient discharge nurse
== END 2025-09-13 16:00 | disposition home or self-care (01) ==
PROVIDERS: PCP Family Medicine; Referring Provider Family Medicine; Visit Provider Orthopaedic Surgery
PROC: 0RQK4ZZ Repair Left Shoulder Joint, Percutaneous Endoscopic Approach (ICD-10-PCS; CPT 29807; principal; 2025-09-13 11:15)
DX: M25.312 Other instability, left shoulder (principal); G89.18 Other acute postprocedural pain; S43.432A Superior glenoid labrum lesion of left shoulder, initial encounter; M94.212 Chondromalacia, left shoulder; X50.0XXA Overexertion from strenuous movement or load, initial encounter
CPT/HCPCS: 29806; 23430; 64450; C1713; J0165; J0330; J0689; J1100; J2250; J2405; J2704; J3010; J3375; J7120; J8501